=== PATIENT | male | born 1950 | race Caucasian/White ===

== ENCOUNTER 2017-01-19 15:03 | Inpatient (IN) | payer SELFPAY ==
[~2017-01-19] VITALS: Ht 172.7 cm; Wt 81.2 kg
[2017-01-19] VITALS (8 sets, daily range): BP systolic 158–190; BP diastolic 75–101
[~2017-01-19 15:03] MED LIST: Naloxone 1mg/ml 2ml ONE
[2017-01-19] MEDS ORDERED: Naloxone 1mg/ml 2ml IVP PRN (15:15)
[2017-01-19 15:33] LABS: MEAN CORPUSCULAR HEMOGLOBIN 27.5 PG (27.0-31.0); MEAN CORPUSCULAR HGB CONC 31.6 G/DL (32.0-36.0); MEAN CORPUSCULAR VOLUME 87 FL (80-99); MEAN PLATELET VOLUME 6.1 FL (6.5-10.1); PLATELET COUNT 334 K/UL (150-450); RED CELL DISTRIBUTION WIDTH 14.9 % (11.6-14.8); WHITE BLOOD COUNT 18.1 K/UL (4.8-10.8)
[2017-01-19 15:37] LABS: PROTHROMBIN TIME 10.6 SEC (9.30-11.50)
[2017-01-19 15:41] LABS: TROPONIN I < 0.30 ng/mL (<=0.30)
[2017-01-19 15:42] LABS: ACETAMINOPHEN < 10 ug/mL (10-30); ALANINE AMINOTRANSFERASE 7 U/L (3-41); ALBUMIN/GLOBULIN RATIO 1.3 (1.0-2.7); ALCOHOL < 10 mg/dL; ANION GAP 13 (5-15); ASPARTATE AMINO TRANSFERASE 13 U/L (5-40); CALCIUM 9.1 mg/dL (8.6-10.2); CARBON DIOXIDE 24 mEQ/L (20-30); CHLORIDE 96 mEQ/L (98-107); CREATININE 1.2 mg/dL (0.7-1.2); GLOMERULAR FILTRATION RATE > 60 mL/min (>60); HEMOLYSIS 0; POTASSIUM 4.3 mEQ/L (3.4-4.9); SODIUM 133 mEQ/L (135-145); TOTAL PROTEIN 7.8 g/dL (6.6-8.7)
[2017-01-19 15:49] LABS: APPEARANCE,URINE SLIGHTLY CLOUDY; KETONES,URINE NEGATIVE (NEGATIVE); LEUKOCYTE ESTERASE ,URINE 2+ (NEGATIVE); NITRITE,URINE NEGATIVE (NEGATIVE); PH,URINE 5 (4.5-8.0); PROTEIN,URINE NEGATIVE (NEGATIVE); UROBILINOGEN,URINE NORMAL MG/DL (0.0-1.0)
[2017-01-19 15:52] LABS: CKMB < 1.5 ng/mL (< 6.7)
[2017-01-19 15:56] LABS: ABG PCO2 45.5 mmHg (35.0-45.0)
[2017-01-19 15:57] LABS: ABG ALLEN TEST POSITIVE; ABG BASE EXCESS -2.6
[2017-01-19 15:59] LABS: BAND NEUTROPHILS % (MANUAL) 10 % (0-8); BASOPHILS % (MANUAL) 0 % (0-2); EOSINOPHILS % (MANUAL) 1 % (0-3); LYMPHOCYTES % (MANUAL) 9 % (20-45); NEUTROPHILS % (MANUAL) 74 % (45-75); PLATELET ESTIMATE ADEQUATE; TOTAL CELLS COUNTED 100
[2017-01-19 16:00] LABS: ANISOCYTOSIS 1+; PLATELET MORPHOLOGY NORMAL
[2017-01-19] MEDS ORDERED: cloNIDine 0.2mg Tab ORAL ONE (16:00)
[2017-01-19 16:04] LABS: BACTERIA,URINE MODERATE /HPF; SQUAMOUS EPITHELIAL CELL,UR FEW /LPF (NONE/OCC)
--- NOTE | 2017-01-19 16:16 | Diagnostic Imaging Report ---
Indication: SOB Technique: One view of the chest Comparison: none Findings: There are bilateral shoulder prostheses. There is bilateral diffuse interstitial edema. The pleural spaces are clear. The heart is borderline enlarged Impression: Borderline cardiomegaly Bilateral diffuse interstitial edema Other findings as noted
[2017-01-19] MEDS ORDERED: D5NS 1,000 ML IV SCH (16:30)
[2017-01-19] MEDS ORDERED: Milk of Magnesia 30ml Ud ORAL PRN (16:30)
[2017-01-19] MEDS ORDERED: Albuterol/Ipratropium 3ml neb HHN PRN (16:30)
[2017-01-19] MEDS ORDERED: Esomeprazole sodium 40mg vial IVP ONE (16:30)
[2017-01-19] MEDS ORDERED: Miralax 17gm pkt ORAL PRN (16:30)
[2017-01-19] MEDS ORDERED: Mylanta II UD 30ml ORAL PRN (16:30)
--- NOTE | 2017-01-19 17:06 | Emergency Room Report ---
History of Present Illness General Chief Complaint: Altered Level of Consciousness Source: Friend, Medical Record, EMS, Caregiver, PMD Present Illness HPI This patient is brought in by EMS. He has a history of narcotic abuse and addiction. He says a history of alcoholism from several years ago. He has a long history of benzodiazepine use. He has had multiple orthopedic surgeries and has become addicted to prescription narcotic pain medications. He is undergoing a 5 day that detox. He has a medical sales specialist, painter decorator and nurse that is handling the home detox. He began detox 3 days ago. Over the past 2 days he has had severe withdrawal symptoms. He is down to oxycodone every 6 hours and has been taking large doses of Valium, gabapentin and other medications to help with the withdrawal symptoms. He had very large doses of Valium over the past day. He is brought in by EMS because of altered mental status. Was concern by his caregiver that he was not responding appropriately. He was slumped over and vomiting. EMS reported that on arrival his oxygen saturations were in the 80s on room air. He did have improvement in his oxygenation with a nonrebreather mask. Also there was concern that the emesis was dark in color that looked like coffee grounds. Patient does have a history of multiple orthopedic surgeries. He has a history of anemia, GERD, tobacco use. The patient is altered and unable to give a significant history. Allergies: Coded Allergies: No Known Allergies (Unverified , 01/19/17) Patient History Past Medical History: see triage record, HTN, GERD, psych hx - Depression, Anxiety, other - anemia, chronic pain, narcotic dependence, tobacco dependence Past Surgical History: other - Bilateral shoulder replacements, Knee replacement Social History: Reports: smoking, alcohol use, Denies: drug use Reviewed Nursing Documentation: PMH: Agreed, PSxH: Agreed Review of Systems All Other Systems: limited Physical Exam Vital Signs Date Time Temp Pulse Resp B/P (MAP) Pulse Ox O2 Delivery O2 Flow Rate FiO2 01/19/17 14:58 101.7 115 24 191/96 80 Room Air Sp02 EP Interpretation: reviewed, abnormal General Appearance: no apparent distress, GCS 15, non-toxic, other - sleepy, but arousable. Head: normocephalic, atraumatic Eyes: bilateral eye normal inspection, bilateral eye PERRL ENT: hearing grossly normal, normal pharynx, no angioedema, normal voice Neck: full range of motion, supple/symm/no masses Respiratory: chest non-tender, no respiratory distress, no retraction, no accessory muscle use, rhonchi, speaking full sentences Cardiovascular #1: no edema, tachycardia Gastrointestinal: normal bowel sounds, non tender, soft, non-distended, no guarding, no rebound, other - umbilical hernia Rectal: deferred Musculoskeletal: back normal, normal range of motion, non-tender Neurologic: responsive, motor strength/tone normal, sensory intact, speech normal, other - Nonfocal Psychiatric: no suicidal/homicidal ideation Skin: normal color, no rash, warm/dry, well hydrated Medical Decision Making Diagnostic Impression: Primary Impression: Benzodiazepine overdose Additional Impressions: Opioid withdrawal Fever Aspiration pneumonia GI bleed ER Course This patient is complicated. He presents with what appears to be a benzodiazepine overdose. The patient received very large doses of Valium over the past 48 hours. He also is sleepy and lethargic. Although, he does arouse to answer simple questions. His neurologic exam is nonfocal overall. He also is in the to aid with drawl which complicates his vital signs. He is tachycardic and hypertensive. He was unable to tolerate oral clonidine with emesis. He was given Compazine, IV hydralazine, clonidine transdermal patch, IV fluids. He had an episode of obvious coffee-ground emesis here in the emergency department. He has a history of GERD. He was given Nexium IV and placed on a Nexium drip. This patient is critically ill. He was admitted to the ICU. This patient is critically ill. This patient required complex medical decision- making, aggressive intervention, extensive laboratory workup and monitoring. Critical care time: 40 minutes. Laboratory Tests Test 01/19/17 15:15 01/19/17 15:30 01/19/17 15:50 White Blood Count 18.1 K/UL (4.8-10.8) H Red Blood Count 4.10 M/UL (4.70-6.10) L Hemoglobin 11.3 G/DL (14.2-18.0) L Hematocrit 35.6 % (42.0-52.0) L Mean Corpuscular Volume 87 FL (80-99) Mean Corpuscular Hemoglobin 27.5 PG (27.0-31.0) Mean Corpuscular Hemoglobin Concent 31.6 G/DL (32.0-36.0) L Red Cell Distribution Width 14.9 % (11.6-14.8) H Platelet Count 334 K/UL (150-450) Mean Platelet Volume 6.1 FL (6.5-10.1) L Neutrophils (%) (Auto) % (45.0-75.0) Lymphocytes (%) (Auto) % (20.0-45.0) Monocytes (%) (Auto) % (1.0-10.0) Eosinophils (%) (Auto) % (0.0-3.0) Basophils (%) (Auto) % (0.0-2.0) Differential Total Cells Counted 100 Neutrophils % (Manual) 74 % (45-75) Lymphocytes % (Manual) 9 % (20-45) L Monocytes % (Manual) 6 % (1-10) Eosinophils % (Manual) 1 % (0-3) Basophils % (Manual) 0 % (0-2) Band Neutrophils 10 % (0-8) H Platelet Estimate Adequate Platelet Morphology Normal Anisocytosis 1+ Prothrombin Time 10.6 SEC (9.30-11.50) Prothrombin Time INR 1.0 (0.9-1.1) PTT 26 SEC (23-33) Sodium Level 133 mEQ/L (135-145) L Potassium Level 4.3 mEQ/L (3.4-4.9) Chloride Level 96 mEQ/L (98-107) L Carbon Dioxide Level 24 mEQ/L (20-30) Anion Gap 13 (5-15) Blood Urea Nitrogen 17 mg/dL (7-23) Creatinine 1.2 mg/dL (0.7-1.2) Estimate Glomerular Filtration Rate > 60 mL/min (>60) Glucose Level 179 mg/dL (74-106) H Calcium Level 9.1 mg/dL (8.6-10.2) Total Bilirubin 0.2 mg/dL (0.0-1.2) Aspartate Amino Transferase (AST) 13 U/L (5-40) Alanine Aminotransferase (ALT) 7 U/L (3-41) Alkaline Phosphatase 105 U/L (40-129) Total Creatine Kinase 49 U/L (38-174) Creatine Kinase MB < 1.5 ng/mL (< 6.7) Creatine Kinase MB Relative Index 3.0 Troponin I < 0.30 ng/mL (<=0.30) Pro-B-Type Natriuretic Peptide 382 pg/mL (0-125) H Total Protein 7.8 g/dL (6.6-8.7) Albumin 4.5 g/dL (3.5-5.2) Globulin 3.3 g/dL Albumin/Globulin Ratio 1.3 (1.0-2.7) Salicylates Level < 1 mg/dL (10-30) L Acetaminophen Level < 10 ug/mL (10-30) L Serum Alcohol < 10 mg/dL Urine Color Pale yellow Urine Appearance Slightly cloudy Urine pH 5 (4.5-8.0) Urine Specific [place] 1.015 (1.005-1.035) Urine Protein Negative (NEGATIVE) Urine Glucose (UA) Negative (NEGATIVE) Urine Ketones Negative (NEGATIVE) Urine Occult Blood 1+ (NEGATIVE) H Urine Nitrite Negative (NEGATIVE) Urine Bilirubin Negative (NEGATIVE) Urine Urobilinogen Normal MG/DL (0.0-1.0) Urine Leukocyte Esterase 2+ (NEGATIVE) H Urine RBC 2-4 /HPF (0 - 0) H Urine WBC 5-10 /HPF (0 - 0) H Urine Squamous Epithelial Cells Few /LPF (NONE/OCC) Urine Bacteria Moderate /HPF (NONE) H Urine Opiates Screen Negative (NEGATIVE) Urine Barbiturates Screen Negative (NEGATIVE) Phencyclidine (PCP) Screen Negative (NEGATIVE) Urine Amphetamines Screen Negative (NEGATIVE) Urine Benzodiazepines Screen Positive (NEGATIVE) H Urine Cocaine Screen Negative (NEGATIVE) Urine Marijuana (THC) Screen Negative (NEGATIVE) Arterial Blood pH 7.320 (7.350-7.450) Arterial Blood Partial Pressure CO2 45.5 mmHg (35.0-45.0) H Arterial Blood Partial Pressure O2 95.5 mmHg (75.0-100.0) Arterial Blood HCO3 23.3 mmol/L (22.0-26.0) Arterial Blood Oxygen Saturation 95.7 % (92.0-98.0) Arterial Blood Base Excess -2.6 Brian Test Positive EKG Diagnostic Results Rate: tachycardiac Rhythm: other ST Segments: no acute changes Other Impression S.tachycardia Rhythm Strip Diag. Results EP Interpretation: yes Rate: 130's Rhythm: no PVC's, no ectopy, other Other Impression S.tachycardia Chest X-Ray Diagnostic Results Chest X-Ray Diagnostic Results : Chest X-Ray Ordered: Yes # of Views/Limited/Complete: 1 View Indication: Other - Interstitial edema. Right lower lobe opacity. EP Interpretation: No Interpretation: no pneumothorax, other Impression: Other Electronically Signed by: Gisella Last Vital Signs Date Time Temp Pulse Resp B/P (MAP) Pulse Ox O2 Delivery O2 Flow Rate FiO2 01/19/17 16:41 199/88 01/19/17 14:58 101.7 115 24 80 Room Air Disposition: ADMITTED INPATIENT Condition: Critical Referrals: NON PHYSICIAN (PCP) MAYRA VELA D.O. Jan 19, 2017 17:06
[2017-01-19] MEDS ORDERED: VALACYCLOVIR500 MG ORAL (17:12)
[2017-01-19] MEDS ORDERED: VIAGRA100 MG PO (17:12)
[2017-01-19] MEDS ORDERED: Acetaminophen 650 MG SUPP RECTAL ONE (17:15)
[2017-01-19] MEDS ORDERED: VITAMIN D400 INTLU ORAL (17:24)
[2017-01-19] MEDS ORDERED: CARAFATE1 GM/10 M1 ORAL (17:24)
[2017-01-19] MEDS ORDERED: FISH OIL CAP1000 MG ORAL (17:24)
[2017-01-19] MEDS ORDERED: COLACE100 MG ORAL (17:24)
[2017-01-19] MEDS ORDERED: TUMS200 M1 PO (17:24)
[2017-01-19] MEDS ORDERED: MIRALAX17 G2 ORAL (17:24)
[2017-01-19] MEDS ORDERED: VITAMIN C500 M1 ORAL (17:24)
[2017-01-19] MEDS ORDERED: CLONIDINE HCL0.1 MG PO (17:24)
[2017-01-19] MEDS ORDERED: TUMS300 MG PO (17:24)
[2017-01-19] MEDS ORDERED: METAMUCIL0.52 G1 PO (17:24)
[2017-01-19] MEDS ORDERED: NARCAN 1 MG/ML IM (17:35)
[2017-01-19] MEDS ORDERED: FLECTOR1 EACH TP (17:35)
[2017-01-19] MEDS ORDERED: NEURONTIN300 MG ORAL (17:42)
[2017-01-19] MEDS ORDERED: OXYCONTIN10 MG ORAL (17:42)
[2017-01-19] MEDS ORDERED: QUETIAPINE FUMA25 MG ORAL (17:42)
[2017-01-19] MEDS ORDERED: ROXICODONE5 MG ORAL (17:42)
[2017-01-19] MEDS ORDERED: QUETIAPINE FUM100 MG ORAL (17:42)
[2017-01-19] MEDS ORDERED: ABILIFY10 MG ORAL (17:42)
[2017-01-19] MEDS ORDERED: PROPRANOLOL HCL80 M2 PO (17:42)
[2017-01-19] MEDS ORDERED: NS IVP SCH (18:00)
[2017-01-19] MEDS ORDERED: ESOMEPRAZOLE SODIUM IVP SCH (18:00)
[2017-01-19] MEDS ORDERED: DEXILANT60 MG ORAL (18:15)
[2017-01-19] MEDS ORDERED: Metoprolol 5mg/5ml Inj IVPB PRN (18:15)
[2017-01-19] MEDS ORDERED: ECOTRIN81 MG PO (18:15)
[2017-01-19] MEDS ORDERED: SULINDAC150 MG PO (18:15)
[2017-01-19] MEDS ORDERED: AMITRIPTYLINE100 MG ORAL (18:15)
[2017-01-19] MEDS ORDERED: SINGULAIR10 MG ORAL (18:15)
[2017-01-19] MEDS ORDERED: ZANTAC150 MG ORAL (18:15)
[2017-01-19] MEDS ORDERED: ZOVIRAX5 GM TOP (18:18)
[2017-01-19] MEDS ORDERED: LOSARTAN POTASS50 MG ORAL (18:18)
[2017-01-19] MEDS ORDERED: BEVESPI AEROS10.7 GM IH (18:18)
[2017-01-19] MEDS ORDERED: CIALIS5 MG PO (18:18)
[2017-01-19] MEDS ORDERED: CIALIS20 MG ORAL (18:18)
[2017-01-19] MEDS ORDERED: FOLIC ACID1 M1 PO (18:18)
[2017-01-19] MEDS ORDERED: Metoprolol Tartrate 5 MG in NS 55 ML IVPB PRN (19:15)
--- NOTE | 2017-01-19 19:39 | Infectious Diseases Prog Note ---
Assessment/Plan Assessment/Plan Full consult dictated: A) 1) possible aspiration pna, ? cap pna, sepsis, leukocytosis, fevers, ? uti 2) ? gib 3) detox, opiate dependency 4) pmh noted 5) allergies - negative P) 1) vancomycin, zosyn, levofloxacin 2) check sc, labs, cultures, chest x-ray 3) orders entered and noted 4) d/w Dr. Arteaga 5) thank you Subjective Allergies: Coded Allergies: No Known Allergies (Unverified , 01/19/17) Objective Vital Signs Last 24 Hour Vital Signs Date Time Temp Pulse Resp B/P (MAP) Pulse Ox O2 Delivery O2 Flow Rate FiO2 01/19/17 17:58 101.8 114 20 186/83 97 Nasal Cannula 2.0 01/19/17 17:38 178/86 01/19/17 17:08 101.9 116 18 190/87 97 Nasal Cannula 2.0 01/19/17 16:41 199/88 01/19/17 16:11 193/106 01/19/17 16:10 101.2 141 24 182/101 94 Nasal Cannula 4.0 01/19/17 14:58 101.7 115 24 191/96 80 Room Air Height (Feet): 5 Height (Inches): 8.00 Weight (Pounds): 170 Laboratory Tests Test 01/19/17 15:15 01/19/17 15:30 01/19/17 15:50 White Blood Count 18.1 K/UL (4.8-10.8) H Red Blood Count 4.10 M/UL (4.70-6.10) L Hemoglobin 11.3 G/DL (14.2-18.0) L Hematocrit 35.6 % (42.0-52.0) L Mean Corpuscular Volume 87 FL (80-99) Mean Corpuscular Hemoglobin 27.5 PG (27.0-31.0) Mean Corpuscular Hemoglobin Concent 31.6 G/DL (32.0-36.0) L Red Cell Distribution Width 14.9 % (11.6-14.8) H Platelet Count 334 K/UL (150-450) Mean Platelet Volume 6.1 FL (6.5-10.1) L Neutrophils (%) (Auto) % (45.0-75.0) Lymphocytes (%) (Auto) % (20.0-45.0) Monocytes (%) (Auto) % (1.0-10.0) Eosinophils (%) (Auto) % (0.0-3.0) Basophils (%) (Auto) % (0.0-2.0) Differential Total Cells Counted 100 Neutrophils % (Manual) 74 % (45-75) Lymphocytes % (Manual) 9 % (20-45) L Monocytes % (Manual) 6 % (1-10) Eosinophils % (Manual) 1 % (0-3) Basophils % (Manual) 0 % (0-2) Band Neutrophils 10 % (0-8) H Platelet Estimate Adequate Platelet Morphology Normal Anisocytosis 1+ Prothrombin Time 10.6 SEC (9.30-11.50) Prothromb Time International Ratio 1.0 (0.9-1.1) Activated Partial Thromboplast Time 26 SEC (23-33) Sodium Level 133 mEQ/L (135-145) L Potassium Level 4.3 mEQ/L (3.4-4.9) Chloride Level 96 mEQ/L (98-107) L Carbon Dioxide Level 24 mEQ/L (20-30) Anion Gap 13 (5-15) Blood Urea Nitrogen 17 mg/dL (7-23) Creatinine 1.2 mg/dL (0.7-1.2) Estimat Glomerular Filtration Rate > 60 mL/min (>60) Glucose Level 179 mg/dL (74-106) H Calcium Level 9.1 mg/dL (8.6-10.2) Total Bilirubin 0.2 mg/dL (0.0-1.2) Aspartate Amino Transf (AST/SGOT) 13 U/L (5-40) Alanine Aminotransferase (ALT/SGPT) 7 U/L (3-41) Alkaline Phosphatase 105 U/L (40-129) Total Creatine Kinase 49 U/L (38-174) Creatine Kinase MB < 1.5 ng/mL (< 6.7) Creatine Kinase MB Relative Index 3.0 Troponin I < 0.30 ng/mL (<=0.30) Pro-B-Type Natriuretic Peptide 382 pg/mL (0-125) H Total Protein 7.8 g/dL (6.6-8.7) Albumin 4.5 g/dL (3.5-5.2) Globulin 3.3 g/dL Albumin/Globulin Ratio 1.3 (1.0-2.7) Salicylates Level < 1 mg/dL (10-30) L Acetaminophen Level < 10 ug/mL (10-30) L Serum Alcohol < 10 mg/dL Urine Color Pale yellow Urine Appearance Slightly cloudy Urine pH 5 (4.5-8.0) Urine Specific [place] 1.015 (1.005-1.035) Urine Protein Negative (NEGATIVE) Urine Glucose (UA) Negative (NEGATIVE) Urine Ketones Negative (NEGATIVE) Urine Occult Blood 1+ (NEGATIVE) H Urine Nitrite Negative (NEGATIVE) Urine Bilirubin Negative (NEGATIVE) Urine Urobilinogen Normal MG/DL (0.0-1.0) Urine Leukocyte Esterase 2+ (NEGATIVE) H Urine RBC 2-4 /HPF (0 - 0) H Urine WBC 5-10 /HPF (0 - 0) H Urine Squamous Epithelial Cells Few /LPF (NONE/OCC) Urine Bacteria Moderate /HPF (NONE) H Urine Opiates Screen Negative (NEGATIVE) Urine Barbiturates Screen Negative (NEGATIVE) Phencyclidine (PCP) Screen Negative (NEGATIVE) Urine Amphetamines Screen Negative (NEGATIVE) Urine Benzodiazepines Screen Positive (NEGATIVE) H Urine Cocaine Screen Negative (NEGATIVE) Urine Marijuana (THC) Screen Negative (NEGATIVE) Arterial Blood pH 7.320 (7.350-7.450) Arterial Blood Partial Pressure CO2 45.5 mmHg (35.0-45.0) H Arterial Blood Partial Pressure O2 95.5 mmHg (75.0-100.0) Arterial Blood HCO3 23.3 mmol/L (22.0-26.0) Arterial Blood Oxygen Saturation 95.7 % (92.0-98.0) Arterial Blood Base Excess -2.6 Brian Test Positive Current Medications Medications (Trade) Dose Ordered Sig/Juan Route PRN Reason Start Time Stop Time Status Last Admin Dose Admin Acetaminophen (Tylenol) 650 mg Q4H PRN ORAL mild pain, fever 01/19/17 19:00 02/18/17 18:59 Acetaminophen (Tylenol) 650 mg Q4H PRN RECTAL Mild Pain (1-3), fever 01/19/17 18:15 02/18/17 18:14 Al Hydroxide/Mg Hydroxide (Mylanta II) 30 ml Q6H PRN ORAL GI UPSET 01/19/17 16:30 02/18/17 16:29 Albuterol/ Ipratropium (DuoNeb 0.5-3(2.5)mg/3ml) 3 ml Q4H PRN HHN Shortness of Breath 01/19/17 16:30 01/24/17 16:29 Artificial Tears (Akwa-Tears) 1 drop THREE TIMES A DAY BOTH EYES 01/19/17 21:00 02/18/17 20:59 Bisacodyl (Dulcolax) 10 mg DAILYPRN PRN RECTAL UNRELIEVED CONSTIPATION 01/19/17 16:30 02/18/17 16:29 Clonidine HCl (Catapres) 0.1 mg TIDPRN PRN ORAL SBP>160 01/19/17 18:15 02/18/17 18:14 Dextrose (Dextrose 50%) STAT PRN IV Hypoglycemia 01/19/17 16:30 02/18/17 16:29 Dextrose/Sodium Chloride 1,000 ml @ 75 mls/hr [id number] IV 01/20/17 19:20 02/19/17 19:19 Diphenhydramine HCl (Benadryl) 25 mg Q6H PRN ORAL Itching/Pruritis 01/19/17 16:30 02/18/17 16:29 Docusate Sodium (Colace) 100 mg EVERY 12 HOURS ORAL 01/19/17 21:00 02/18/17 20:59 Esomeprazole Sodium 80 mg/ Sodium Chloride 275 ml @ 27.5 mls/hr Q10H IVP 01/19/17 19:00 02/18/17 18:59 Heparin Sodium (Porcine) (Heparin 5000 units/ml) 5,000 units EVERY 8 HOURS SUBQ 01/19/17 22:00 02/18/17 21:59 Future Hold Magnesium Hydroxide (Mom) 30 ml HSPRN PRN ORAL Constipation 01/19/17 16:30 02/18/17 16:29 Metoprolol Tartrate 5 mg/ Sodium Chloride 60 ml @ 120 mls/hr Q6H PRN IVPB SBP>160 IF UNABLE TO TAKE ORAL 01/19/17 19:15 02/18/17 19:14 Naloxone HCl (Narcan) 2 mg Q2M PRN IVP to reverse resp depression 01/19/17 15:15 02/18/17 15:14 01/19/17 15:34 Ondansetron HCl (Zofran) 4 mg Q6H PRN IVP Nausea & Vomiting 01/19/17 16:30 02/18/17 16:29 Piperacillin Sod/ Tazobactam Sod 3.375 gm/Dextrose 110 ml @ 27.5 mls/hr Q8HR IVPB 01/19/17 20:00 01/26/17 19:59 Polyethylene Glycol (Miralax) 17 gm DAILYPRN PRN ORAL Constipation 01/19/17 16:30 02/18/17 16:29 Prochlorperazine (Compazine) 10 mg Q6H PRN IVP UNRELIEVED N/V 01/19/17 16:30 02/18/17 16:29 CHUCK ASHER Jan 19, 2017 19:39
[2017-01-19] MEDS: ESOMEPRAZOLE SODIUM IVP SCH (20:10)
[2017-01-19] MEDS: NS IVP SCH (20:10)
[2017-01-19] MEDS: Piperacillin/Tazobactam 3.375 GM in D5W 110 ML IVPB SCH (20:47)
[2017-01-19] MEDS: Docusate 100mg cap ORAL SCH (21:00)
[2017-01-19] MEDS: Artificial Tears 1.4% Op Soln BOTH EYES SCH (21:16)
[2017-01-19] MEDS: Acetaminophen 650 MG SUPP RECTAL PRN (21:58)
[2017-01-19] MEDS ORDERED: Heparin 5000 units/ml inj SUBQ SCH (22:00)
[2017-01-19] MEDS: Vancomycin 1250mg/D5W 250ml IVPB SCH (23:03)
--- NOTE | 2017-01-19 23:18 | History and Physical ---
History of Present Illness General Date patient seen: Jan 19, 2017 Time patient seen: 16:50 Reason for Hospitalization: Altered Level of Consciousness Present Illness HPI 66y/o male with pmh of depression/anxiety, alcohol abuse (now in remission per reports), hepatitis C, tobacco abuse, chronic pain with opioid dependence, osteoarthritis w/ multiple orthopedic surgeries (R TKA 08/2016, R reverse total shoulder arthroplasty 09/2016), GERD, esophagitis who presents with AMS. Pt somnolent at time of my history. Per pt's cousin, pt has had multiple orthopedic surgeries and has become addicted to prescription narcotic pain medications. He is undergoing a 5 day detox. He has a medical recruiter, painter decorator and nurse that is handling the home detox. Over the past 2 days he has had severe withdrawal symptoms. He is down to oxycodone 5mg every 6 hours and has been taking large doses of Valium, gabapentin and other medications to help with the withdrawal symptoms. He had very large doses of Valium over the past day. There was concern by his caregiver that he was not responding appropriately. He was slumped over and vomiting. There was concern for aspiration. EMS reported that on arrival his oxygen saturations were in the 80s on room air. He did have improvement in his oxygenation with a nonrebreather mask. Also there was concern that the emesis was dark in color that looked like coffee grounds. Patient does have a history of multiple orthopedic surgeries. In ED, pt noted to have fevers to 101, tachycardic and hypertensive. Labs showed leukocytosis to 18K, hyponatremia. Pt given fluids, levaquin Allergies: Coded Allergies: No Known Allergies (Unverified , 01/19/17) Medication History Scheduled Acyclovir* (Zovirax*), 1 APPLIC TOP FIVE TIMES A DAY, (Reported) Amitriptyline HCl (Amitriptyline HCl), 100 MG ORAL BEDTIME, (Reported) Aripiprazole* (Abilify*), 5 MG ORAL DAILY, (Reported) Ascorbic Acid* (Vitamin C*), 500 MG ORAL DAILY, (Reported) Aspirin (Ecotrin), 81 MG PO DAILY, (Reported) Calcium Carbonate (Tums), 300 MG PO TID, (Reported) Dexlansoprazole (Dexilant), 60 MG ORAL DAILY, (Reported) Docusate Sodium* (Colace*), 250 MG ORAL DAILY, (Reported) Fish Oil (Fish Oil 1,000 mg Capsule), 1,000 MG ORAL DAILY, (Reported) Folic Acid (Folic Acid), 1 MG PO DAILY, (Reported) Gabapentin (Neurontin), 300 MG ORAL THREE TIMES A DAY, (Reported) Glycopyrrolate/Formoterol Fum (Bevespi Aerosphere Inhaler), 10.7 GM IH BID, ( Reported) Losartan Potassium* (Losartan Potassium*), 50 MG ORAL BID, (Reported) Montelukast Sodium* (Singulair*), 10 MG ORAL DAILY, (Reported) Propranolol HCl (Propranolol HCl), 80 MG PO BID, (Reported) Psyllium Husk (Metamucil), 0.52 GM PO DAILY, (Reported) Quetiapine Fumarate* (Seroquel*), 100 MG ORAL HS, (Reported) Quetiapine Fumarate* (Seroquel*), 25 MG ORAL HS, (Reported) Ranitidine Hcl* (Zantac*), 150 MG ORAL TWICE A DAY, (Reported) Sildenafil Citrate (Viagra), 100 MG PO PRN, (Reported) Sucralfate (Carafate), 1 GM ORAL FOUR TIMES A DAY, (Reported) Sulindac (Sulindac), 150 MG PO BID, (Reported) Tadalafil (Cialis), 20 MG ORAL NEEDED, (Reported) Tadalafil (Cialis), 5 MG PO DAILY, (Reported) Valacyclovir Hcl* (Valtrex*), 500 MG ORAL TWICE A DAY, (Reported) Vitamin D (Vitamin D3), 5,000 UNITS ORAL DAILY, (Reported) Scheduled PRN Clonidine Hcl (Clonidine Hcl), 0.1 MG PO TID PRN for For High Blood Pressure, ( Reported) Diclofenac Epolamine (Flector), 1 EACH TP DAILY PRN for For Pain, (Reported) Oxycodone HCl (Oxycodone HCl), 5 MG ORAL Q4H PRN for For Pain, (Reported) Oxycodone Hcl Er* (Oxycontin*), 10 MG ORAL EVERY 12 HOURS PRN for For Pain, ( Reported) Polyethylene Glycol 3350* (Miralax*), 17 GM ORAL DAILY PRN for Constipation, ( Reported) Miscellaneous Medications Calcium Carbonate (Tums), 500 MG PO, (Reported) Naloxone HCl (Naloxone HCl), 2 MG IM, (Reported) Patient History History Provided By: Patient, Family Member, Friend, Medical Record, Caregiver , PMD Healthcare decision maker Resuscitation status Full Code Advanced Directive on File Patient History Narrative right total knee arthroplasty approximately 08/2012 right reverse total shoulder arthroplasty 09/15/2012 right shoulder joint steroid injection in the past under anesthesia left total knee arthroplasty history of bilateral pneumonia with intubation several months ago hepatitis C positive anemia, degenerative joint disease insomnia depression esophagitis seen on EGD done ~2 months ago Past Medical/Surgical History Past Medical/Surgical History: (1) Opioid dependence (2) Osteoarthritis (3) Insomnia (4) Depression (5) Anxiety (6) Hepatitis C infection (7) Esophagitis (8) Tobacco abuse Family History Family History: Patient reports no known family medical history. Social History Social History: (1) Lives with family (2) Smoker Review of Systems ROS Narrative Unable to obtain given AMS Physical Exam Physical Exam Narrative General: somnolent, arousable briefly to voice Head: normocephalic, without obvious abnormality, atraumatic Eyes: conjunctivae/corneas clear. PERRL, EOM's intact Throat: lips, mucosa, and tongue normal. MMM Neck: supple, symmetrical, trachea midline, and no JVD Lungs: +rhonchi b/l Heart: regular rate and rhythm, S1, S2 normal, no murmur, click, rub or gallop Abdomen: soft, non-tender, non-distended, bowel sounds normal; no masses or organomegaly Extremities: extremities normal, atraumatic, no cyanosis or edema Pulses: 2+ and symmetric Skin: skin color, texture, turgor normal; no rashes or lesions Neurologic: grossly normal, no focal deficits Last 24 Hour Vital Signs Date Time Temp Pulse Resp B/P (MAP) Pulse Ox O2 Delivery O2 Flow Rate FiO2 01/19/17 20:51 Nasal Cannula 2.0 28 01/19/17 20:51 97 Nasal Cannula 2.0 28 01/19/17 20:50 103 20 Nasal Cannula 2.0 28 01/19/17 20:09 111 166/79 01/19/17 20:00 117 01/19/17 19:18 112 22 198/89 97 Nasal Cannula 2.0 01/19/17 17:58 101.8 114 20 186/83 97 Nasal Cannula 2.0 01/19/17 17:38 178/86 01/19/17 17:08 101.9 116 18 190/87 97 Nasal Cannula 2.0 01/19/17 16:41 199/88 01/19/17 16:11 193/106 01/19/17 16:10 101.2 141 24 182/101 94 Nasal Cannula 4.0 01/19/17 14:58 101.7 115 24 191/96 80 Room Air Intake and Output 01/19/17 01/20/17 19:00 07:00 Intake Total 1500 ml Output Total 1300 ml 1450 ml Balance 200 ml -1450 ml Intake IV Total 1500 ml Output Urine Total 1300 ml 1450 ml Laboratory Tests Test 01/19/17 15:15 01/19/17 15:30 01/19/17 15:50 White Blood Count 18.1 K/UL (4.8-10.8) H Red Blood Count 4.10 M/UL (4.70-6.10) L Hemoglobin 11.3 G/DL (14.2-18.0) L Hematocrit 35.6 % (42.0-52.0) L Mean Corpuscular Volume 87 FL (80-99) Mean Corpuscular Hemoglobin 27.5 PG (27.0-31.0) Mean Corpuscular Hemoglobin Concent 31.6 G/DL (32.0-36.0) L Red Cell Distribution Width 14.9 % (11.6-14.8) H Platelet Count 334 K/UL (150-450) Mean Platelet Volume 6.1 FL (6.5-10.1) L Neutrophils (%) (Auto) % (45.0-75.0) Lymphocytes (%) (Auto) % (20.0-45.0) Monocytes (%) (Auto) % (1.0-10.0) Eosinophils (%) (Auto) % (0.0-3.0) Basophils (%) (Auto) % (0.0-2.0) Differential Total Cells Counted 100 Neutrophils % (Manual) 74 % (45-75) Lymphocytes % (Manual) 9 % (20-45) L Monocytes % (Manual) 6 % (1-10) Eosinophils % (Manual) 1 % (0-3) Basophils % (Manual) 0 % (0-2) Band Neutrophils 10 % (0-8) H Platelet Estimate Adequate Platelet Morphology Normal Anisocytosis 1+ Prothrombin Time 10.6 SEC (9.30-11.50) Prothromb Time International Ratio 1.0 (0.9-1.1) Activated Partial Thromboplast Time 26 SEC (23-33) Sodium Level 133 mEQ/L (135-145) L Potassium Level 4.3 mEQ/L (3.4-4.9) Chloride Level 96 mEQ/L (98-107) L Carbon Dioxide Level 24 mEQ/L (20-30) Anion Gap 13 (5-15) Blood Urea Nitrogen 17 mg/dL (7-23) Creatinine 1.2 mg/dL (0.7-1.2) Estimat Glomerular Filtration Rate > 60 mL/min (>60) Glucose Level 179 mg/dL (74-106) H Calcium Level 9.1 mg/dL (8.6-10.2) Total Bilirubin 0.2 mg/dL (0.0-1.2) Aspartate Amino Transf (AST/SGOT) 13 U/L (5-40) Alanine Aminotransferase (ALT/SGPT) 7 U/L (3-41) Alkaline Phosphatase 105 U/L (40-129) Total Creatine Kinase 49 U/L (38-174) Creatine Kinase MB < 1.5 ng/mL (< 6.7) Creatine Kinase MB Relative Index 3.0 Troponin I < 0.30 ng/mL (<=0.30) Pro-B-Type Natriuretic Peptide 382 pg/mL (0-125) H Total Protein 7.8 g/dL (6.6-8.7) Albumin 4.5 g/dL (3.5-5.2) Globulin 3.3 g/dL Albumin/Globulin Ratio 1.3 (1.0-2.7) Salicylates Level < 1 mg/dL (10-30) L Acetaminophen Level < 10 ug/mL (10-30) L Serum Alcohol < 10 mg/dL Urine Color Pale yellow Urine Appearance Slightly cloudy Urine pH 5 (4.5-8.0) Urine Specific [place] 1.015 (1.005-1.035) Urine Protein Negative (NEGATIVE) Urine Glucose (UA) Negative (NEGATIVE) Urine Ketones Negative (NEGATIVE) Urine Occult Blood 1+ (NEGATIVE) H Urine Nitrite Negative (NEGATIVE) Urine Bilirubin Negative (NEGATIVE) Urine Urobilinogen Normal MG/DL (0.0-1.0) Urine Leukocyte Esterase 2+ (NEGATIVE) H Urine RBC 2-4 /HPF (0 - 0) H Urine WBC 5-10 /HPF (0 - 0) H Urine Squamous Epithelial Cells Few /LPF (NONE/OCC) Urine Bacteria Moderate /HPF (NONE) H Urine Opiates Screen Negative (NEGATIVE) Urine Barbiturates Screen Negative (NEGATIVE) Phencyclidine (PCP) Screen Negative (NEGATIVE) Urine Amphetamines Screen Negative (NEGATIVE) Urine Benzodiazepines Screen Positive (NEGATIVE) H Urine Cocaine Screen Negative (NEGATIVE) Urine Marijuana (THC) Screen Negative (NEGATIVE) Arterial Blood pH 7.320 (7.350-7.450) Arterial Blood Partial Pressure CO2 45.5 mmHg (35.0-45.0) H Arterial Blood Partial Pressure O2 95.5 mmHg (75.0-100.0) Arterial Blood HCO3 23.3 mmol/L (22.0-26.0) Arterial Blood Oxygen Saturation 95.7 % (92.0-98.0) Arterial Blood Base Excess -2.6 Brian Test Positive Height (Feet): 5 Height (Inches): 8.00 Weight (Pounds): 179 Medications Current Medications Medications (Trade) Dose Ordered Sig/Juan Route PRN Reason Start Time Stop Time Status Last Admin Dose Admin Acetaminophen (Tylenol) 650 mg Q4H PRN ORAL mild pain, fever 01/19/17 19:00 02/18/17 18:59 Acetaminophen (Tylenol) 650 mg Q4H PRN RECTAL Mild Pain (1-3), fever 01/19/17 18:15 02/18/17 18:14 01/19/17 21:58 Al Hydroxide/Mg Hydroxide (Mylanta II) 30 ml Q6H PRN ORAL GI UPSET 01/19/17 16:30 02/18/17 16:29 Albuterol/ Ipratropium (DuoNeb 0.5-3(2.5)mg/3ml) 3 ml Q4H PRN HHN Shortness of Breath 01/19/17 16:30 01/24/17 16:29 Artificial Tears (Akwa-Tears) 1 drop THREE TIMES A DAY BOTH EYES 01/19/17 21:00 02/18/17 20:59 01/19/17 21:16 Bisacodyl (Dulcolax) 10 mg DAILYPRN PRN RECTAL UNRELIEVED CONSTIPATION 01/19/17 16:30 02/18/17 16:29 Clonidine HCl (Catapres) 0.1 mg TIDPRN PRN ORAL SBP>160 01/19/17 18:15 02/18/17 18:14 Dextrose (Dextrose 50%) STAT PRN IV Hypoglycemia 01/19/17 16:30 02/18/17 16:29 Dextrose/Sodium Chloride 1,000 ml @ 75 mls/hr [id number] IV 01/20/17 19:20 02/19/17 19:19 Diphenhydramine HCl (Benadryl) 25 mg Q6H PRN ORAL Itching/Pruritis 01/19/17 16:30 02/18/17 16:29 Docusate Sodium (Colace) 100 mg EVERY 12 HOURS ORAL 01/19/17 21:00 02/18/17 20:59 Esomeprazole Sodium 80 mg/ Sodium Chloride 275 ml @ 27.5 mls/hr Q10H IVP 01/19/17 19:00 02/18/17 18:59 01/19/17 20:10 Heparin Sodium (Porcine) (Heparin 5000 units/ml) 5,000 units EVERY 8 HOURS SUBQ 01/19/17 22:00 02/18/17 21:59 Future Hold Levofloxacin 100 ml @ 100 mls/hr Q24H IVPB 01/20/17 16:00 01/27/17 15:59 Magnesium Hydroxide (Mom) 30 ml HSPRN PRN ORAL Constipation 01/19/17 16:30 02/18/17 16:29 Metoprolol Tartrate 5 mg/ Sodium Chloride 60 ml @ 120 mls/hr Q6H PRN IVPB SBP>160 IF UNABLE TO TAKE ORAL 01/19/17 19:15 02/18/17 19:14 01/19/17 20:09 Ondansetron HCl (Zofran) 4 mg Q6H PRN IVP Nausea & Vomiting 01/19/17 16:30 02/18/17 16:29 Piperacillin Sod/ Tazobactam Sod 3.375 gm/Dextrose 110 ml @ 27.5 mls/hr Q8HR IVPB 01/19/17 20:00 01/26/17 19:59 01/19/17 20:47 Polyethylene Glycol (Miralax) 17 gm DAILYPRN PRN ORAL Constipation 01/19/17 16:30 02/18/17 16:29 Prochlorperazine (Compazine) 10 mg Q6H PRN IVP UNRELIEVED N/V 01/19/17 16:30 02/18/17 16:29 Vancomycin HCl (Vanco rx to dose) 1 ea DAILYPRN PRN MISC Per rx protocol 01/19/17 19:30 02/18/17 19:29 Vancomycin HCl/ Dextrose 250 ml @ 166.667 mls/hr Q12H IVPB 01/19/17 23:00 01/24/17 22:59 Assessment/Plan Problem List: (1) Acute toxic encephalopathy (2) Benzodiazepine overdose ICD Codes: T42.4X1A - Poisoning by benzodiazepines, accidental (unintentional) , initial encounter SNOMED: 586614163 (3) Sepsis ICD Codes: A41.9 - Sepsis, unspecified organism SNOMED: 24270887 (4) Acute respiratory failure with hypoxia ICD Codes: J96.01 - Acute respiratory failure with hypoxia SNOMED: 38571715, 545854440 (5) Aspiration pneumonia ICD Codes: J69.0 - Pneumonitis due to inhalation of food and vomit SNOMED: 683331726 (6) Coffee ground emesis Assessment & Plan: Pssible upper GI bleed 2/2 PUD given h/o NSAID and ASA use ICD Codes: K92.0 - Hematemesis SNOMED: 35567100, 472070929 (7) Opioid dependence ICD Codes: F11.20 - Opioid dependence, uncomplicated SNOMED: 15350387 (8) Tobacco abuse ICD Codes: Z72.0 - Tobacco use SNOMED: 71154337, 778566490 (9) H/O esophagitis ICD Codes: Z87.19 - Personal history of other diseases of the digestive system SNOMED: 283671571779259 (10) GERD (gastroesophageal reflux disease) ICD Codes: K21.9 - Gastro-esophageal reflux disease without esophagitis SNOMED: 138015828 Status: stable Assessment/Plan Admit to ICU Monitor mental status, vitals, respiratory status closely O2 PRN to maintain sats>92% NPO given AMS IVFs Swallow eval ID consulted Empiric Abx:vanco and zosyn GI consulted PPI gtt Carafate Hold all IV narcotics and benzo's per PCP Supportive care Bowel regimen At the time of my involvement, the patient's condition was critical with high potential for and/or physiologic deterioration secondary to acute encephalopathy, hypoxia, aspiration PNA as delineated in the note above. On the above date of service, I spent a total of 75min on this encounter and 45min minutes in the ICU evaluating, managing, and providing critical care services to this patient, including time spent documenting these activities, counseling patient/family, and coordinating care. Critical care services performed include: Telemetry Review Hemodynamic measurement interpretation Laboratory data review and interpretation Discussion of care plans with patient, family, and/or surrogate decision makers Discussion of patient's care with primary medical team, surgical team, and/or consulting service Decision to obtain further radiologic evaluation, after consideration of risk/ benefit ratio Decision to perform invasive procedure, after consideration of risk/benefit ratio Review of most recent microbiology results with assessment and modification of antimicrobial coverage Discussion of patient's code status and further advancement towards the ultimate goals of care Plan outlined above discussed with patient/family, FASHION MERCHANDISER, ICU team, and involved physicians/consultants. D/w PCP Dr. Hilton, ED physician, ID, GI regarding mgmt and dispo Time of note may not reflect time of encounter. Jenni Lang M.D. Jan 19, 2017 23:18
[2017-01-20] VITALS (15 sets, daily range): BP systolic 123–166; BP diastolic 57–95
[2017-01-20] MEDS: Acetaminophen 650 MG SUPP RECTAL PRN (02:09)
[2017-01-20] MEDS: NS IVP SCH (03:00)
[2017-01-20] MEDS: ESOMEPRAZOLE SODIUM IVP SCH (03:00)
[2017-01-20 05:22] LABS: BASOPHILS % (AUTO) 0.6 % (0.0-2.0); LYMPHOCYTES % (AUTO) 9.9 % (20.0-45.0); MEAN CORPUSCULAR HEMOGLOBIN 29.1 PG (27.0-31.0); MEAN CORPUSCULAR HGB CONC 33.8 G/DL (32.0-36.0); MEAN CORPUSCULAR VOLUME 86 FL (80-99); MEAN PLATELET VOLUME 6.1 FL (6.5-10.1); MONOCYTES % (AUTO) 9.1 % (1.0-10.0); NEUTROPHILS % (AUTO) 80.4 % (45.0-75.0); PLATELET COUNT 256 K/UL (150-450); RED BLOOD COUNT 3.18 M/UL (4.70-6.10); RED CELL DISTRIBUTION WIDTH 14.8 % (11.6-14.8); WHITE BLOOD COUNT 17.7 K/UL (4.8-10.8)
[2017-01-20 05:41] LABS: ALANINE AMINOTRANSFERASE 6 U/L (3-41); ANION GAP 12 (5-15); ASPARTATE AMINO TRANSFERASE 14 U/L (5-40); BILIRUBIN,DIRECT 0.1 mg/dL (0.1-0.3); CALCIUM 8.5 mg/dL (8.6-10.2); CARBON DIOXIDE 24 mEQ/L (20-30); CHLORIDE 101 mEQ/L (98-107); CREATININE 1.1 mg/dL (0.7-1.2); GLOMERULAR FILTRATION RATE > 60 mL/min (>60); HEMOLYSIS 6; SODIUM 137 mEQ/L (135-145); TOTAL PROTEIN 6.4 g/dL (6.6-8.7)
[2017-01-20] MEDS ORDERED: Haloperidol 1mg tab ORAL PRN (05:45)
[2017-01-20] MEDS: Piperacillin/Tazobactam 3.375 GM in D5W 110 ML IVPB SCH ×2 (06:26→13:51)
--- NOTE | 2017-01-20 06:30 | Consultation ---
DATE OF CONSULTATION: 01/19/2017 INFECTIOUS DISEASE CONSULTATION CONSULTING PHYSICIAN: Mirian Rowland M.D. ATTENDING PHYSICIAN: Duy Cody M.D. REFERRING PHYSICIAN: Jenni Lang M.D. Reason For Consultation: Pneumonia, sepsis, leukocytosis, fevers, and aspiration pneumonia. Chief Complaint: The patient's chief complaint coming to the hospital is opioid withdrawal, benzodiazepine overdose. History Of Present Illness: This is a 66-year-old male, who was seen in the emergency room at [facility]. The patient overall is a poor historian. The patient has a history of narcotic abuse and addiction and history of history of alcoholism. The patient also has a history of benzodiazepine use. Also, history of multiple orthopedic surgeries and addiction to narcotics. The patient is undergoing five-day detox. The patient underwent detox few days ago and has had severe withdrawal symptoms in the past two days. He has had oxycodone and Valium. The patient presents with altered mental status and not responding very well prior to admission. He slumped over and vomiting and desaturation oxygen. There is a concern for emesis with coffee-ground material. The patient is febrile, temperatures of 101.9 degrees and has a significant leukocytosis of 18,000 and has SIRS criteria with elevated heart rate and respiratory rate. Infectious Diseases consultation was requested for antibiotic management. The patient will go to the ICU and I am going to start him on vancomycin and Zosyn to cover aspiration pneumonia and Gram-negative and MRSA. Cultures have been ordered. MAR was noted. Orders were noted. Notes were reviewed. Case was discussed with Dr. Arteaga. Past Medical History: The patient's past medical history includes the following. He has history of narcotic pain medication addiction, history of alcoholism, and history of nicotine dependency. No history of IV drug abuse. He also has a past medical history of hypertension, GERD, psychiatric disease, depression, anxiety, anemia, and chronic pain. Past Surgical History: History of bilateral shoulder replacements and knee replacement. Medications: Upon reviewing the MAR, he is on the following medications. In the emergency room, he got heparin, Zosyn, metoprolol, acetaminophen, proton pump inhibitor, and clonidine. I think he got Nexium, was a proton pump inhibitor. Apresoline and clonidine was given, albuterol treatment, Zofran, Compazine, bisacodyl, diphenhydramine, famotidine, Levaquin was given also. Naloxone was given. ALLERGIES: Negative. Social History: Positive for alcohol use, smoking use, and also addiction to narcotic pain medications. FAMILY HISTORY: Noncontributory. Review Of Systems: General: The patient is a poor historian. He is lethargic, weak, altered mental status, tachycardic. Head And Neck: No obvious head pain or neck pain. Cardiac: No pressor. Gastrointestinal: He does have possible coffee-ground emesis. He does have vomiting. Genitourinary: No Hogan. Pulmonary: He is congested and short of breath and tachypneic. Skin: No rash. Neurologic: No seizures. PHYSICAL EXAMINATION: Vital Signs: Temperature is 101.9 degrees, pulse rate is 114, respiratory rate 20, blood pressure 186/83, T-max is 101.9 degrees, and saturation 97%, he is on nasal cannula. Head And Neck: Oral exam, no thrush. Eye exam, no icterus. Normocephalic. No facial droop. Neck is supple. HEART: Regular. No gallop or murmur. Tachycardic. LUNGS: Bilateral rhonchi and rales. ABDOMEN: Soft. Positive bowel sounds. Nontender. SKIN: He has no rash. MUSCULOSKELETAL: No effusion. Legs without cellulitis. PERIPHERAL VASCULAR: No cyanosis. GENITOURINARY: No Hogan. LINES: Line sites without phlebitis. NEUROLOGIC: Generalized weakness. Responsive. Laboratory And Diagnostic Data: Laboratory data is as follows: White count is 18.1 and hemoglobin 11.3. He has had 10% bands. Creatinine is 1.2. Sodium 133. Chest x-ray shows diffuse interstitial edema, possible right lower lobe opacity. Reading was interstitial edema however. Cultures are pending. ASSESSMENT AND PLAN: 1. The patient is septic with elevated white count and fevers, systemic inflammatory response syndrome criteria. Mostly likely he has an aspiration pneumonia with coffee-ground emesis and subsequent sepsis. The patient currently is on Zosyn and I am going to add vancomycin for methicillin-resistant Staphylococcus aureus coverage especially with history of orthopedic surgeries and the patient is at some risk for methicillin-resistant Staphylococcus aureus pneumonia and methicillin-resistant Staphylococcus aureus infection. We will continue Zosyn for aspiration pneumonia. I would also continue Levaquin for double Gram-negative coverage in addition to cover community-acquired pneumonia including atypical pneumonia, which is also a possibility even though I think this is less likely. But because of the critical nature of the patient including sepsis and respiratory insufficiency, I would cover him for aspiration community acquired including methicillin-resistant Staphylococcus aureus Gram-negative pneumonia. Continue antibiotics. Check sputum cultures, labs, blood cultures, and chest x-ray. Of note, urinalysis did show 2+ leukocyte esterase, must consider possible urinary tract infection but this is again less likely. Check followup labs, chest x-ray, and cultures. 2. History of alcohol use, smoking, also narcotic dependency. The patient was in detox. Continue supportive measures per Dr. Arteaga. 3. History of hypertension. 4. Gastroesophageal reflux disease. 5. Psychiatric disease. 6. Depression. 7. Anxiety. 8. Anemia. 9. Chronic pain syndrome. 10. Narcotic dependency. 11. History of bilateral shoulder replacement. 12. History of knee replacement. 13. MAR was noted. 14. Case was discussed with RN. 15. Case was discussed with Dr. Arteaga. 16. Allergies are negative. 17. Family history is noncontributory. 18. Notes were reviewed. 19. Continue treatment per Dr. Arteaga and consultants. 20. ICU care. 21. Continue pulmonary treatment. I was asked by Dr. Arteaga to see this patient. Of note, the patient will go to the ICU and the patient was seen in the emergency room. Mirian Rowland M.D. DR: Iqra JOB#: [id number] CC: SURINDER
[2017-01-20 08:47] LABS: BASOPHILS % (AUTO) 0.3 % (0.0-2.0); EOSINOPHILS % (AUTO) 0.2 % (0.0-3.0); LYMPHOCYTES % (AUTO) 14.1 % (20.0-45.0); MEAN CORPUSCULAR HEMOGLOBIN 27.5 PG (27.0-31.0); MEAN CORPUSCULAR VOLUME 86 FL (80-99); MEAN PLATELET VOLUME 5.8 FL (6.5-10.1); MONOCYTES % (AUTO) 9.3 % (1.0-10.0); NEUTROPHILS % (AUTO) 76.2 % (45.0-75.0); PLATELET COUNT 255 K/UL (150-450); RED BLOOD COUNT 3.31 M/UL (4.70-6.10); RED CELL DISTRIBUTION WIDTH 14.3 % (11.6-14.8); WHITE BLOOD COUNT 15.7 K/UL (4.8-10.8)
[2017-01-20] MEDS: Propranolol 40mg tab ORAL SCH ×2 (09:00→09:18)
[2017-01-20] MEDS ORDERED: Montelukast 10mg tablet ORAL SCH (09:00)
[2017-01-20] MEDS: Sucralfate 1gm tab ORAL SCH ×2 (09:18→13:30)
[2017-01-20] MEDS: Artificial Tears 1.4% Op Soln BOTH EYES SCH ×2 (09:18→13:29)
[2017-01-20] MEDS: Docusate 100mg cap ORAL SCH (09:18)
[2017-01-20] MEDS ORDERED: Esomeprazole sodium 40mg vial IVP SCH (09:45)
--- NOTE | 2017-01-20 10:02 | Pulmonology Progress Note ---
Assessment/Plan Problems: (1) Aspiration pneumonia (2) Benzodiazepine overdose (3) Acute toxic encephalopathy (4) Coffee ground emesis Assessment/Plan improving afebrile chest pt respiratory treatment. Subjective ROS Limited/Unobtainable: No Interval Events: admitted last night to ICU for fever, sepsis, ALOC, drug overdose, Constitutional: Reports: no symptoms HEENT: Repors: no symptoms Respiratory: Reports: productive cough Allergies: Coded Allergies: No Known Allergies (Unverified , 01/19/17) Objective Last 24 Hour Vital Signs Date Time Temp Pulse Resp B/P (MAP) Pulse Ox O2 Delivery O2 Flow Rate FiO2 01/20/17 09:00 94 139/57 01/20/17 08:00 88 01/20/17 08:00 98.1 88 20 134/73 97 Nasal Cannula 2.0 01/20/17 07:00 87 20 143/70 97 Nasal Cannula 2.0 01/20/17 06:40 Nasal Cannula 2.0 01/20/17 06:39 97 Nasal Cannula 2.0 01/20/17 06:37 100 18 Nasal Cannula 2.0 01/20/17 06:00 106 20 165/68 97 Nasal Cannula 2.0 01/20/17 05:52 89 01/20/17 05:00 100 20 155/77 97 Nasal Cannula 2.0 01/20/17 04:00 106 01/20/17 04:00 98.3 95 18 135/60 97 Nasal Cannula 2.0 01/20/17 03:00 92 17 151/65 98 Nasal Cannula 2.0 01/20/17 02:00 89 16 166/84 98 Nasal Cannula 2.0 01/20/17 01:00 91 16 166/84 98 Nasal Cannula 2.0 01/20/17 00:00 99.1 93 15 156/78 97 Nasal Cannula 2.0 01/20/17 00:00 92 01/19/17 23:00 99 16 174/77 97 Nasal Cannula 2.0 01/19/17 22:00 99 16 175/77 97 Nasal Cannula 2.0 01/19/17 21:00 101 15 158/75 98 Nasal Cannula 2.0 01/19/17 20:51 Nasal Cannula 2.0 28 01/19/17 20:51 97 Nasal Cannula 2.0 28 01/19/17 20:50 103 20 Nasal Cannula 2.0 28 01/19/17 20:09 111 166/79 01/19/17 20:00 109 16 174/77 97 Nasal Cannula 2.0 01/19/17 20:00 117 01/19/17 19:18 112 22 198/89 97 Nasal Cannula 2.0 01/19/17 19:00 99.5 115 17 165/89 96 Nasal Cannula 2.0 01/19/17 17:58 101.8 114 20 186/83 97 Nasal Cannula 2.0 01/19/17 17:38 178/86 01/19/17 17:08 101.9 116 18 190/87 97 Nasal Cannula 2.0 01/19/17 16:41 199/88 01/19/17 16:11 193/106 01/19/17 16:10 101.2 141 24 182/101 94 Nasal Cannula 4.0 01/19/17 14:58 101.7 115 24 191/96 80 Room Air Intake and Output 01/20/17 01/21/17 19:00 07:00 Intake Total 130.0 ml Output Total 50 ml Balance 80.0 ml Intake IV Total 130.0 ml Output Urine Total 50 ml General Appearance: WD/WN HEENT: normocephalic, atraumatic Respiratory/Chest: chest wall non-tender, lungs clear Cardiovascular: normal peripheral pulses, normal rate Abdomen: normal bowel sounds, soft, non tender Genitourinary: normal external genitalia Extremities: no clubbing Skin: no lesions 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, no motor/sensory deficits Lymphatic: no neck adenopathy Musculoskeletal: normal muscle bulk, no effusion Microbiology Date/Time Source Procedure Growth Status 01/19/17 15:30 Urine,Clean Catch Urine Culture - Preliminary Gram Negative Bacillus 1 Resulted Laboratory Tests 01/19/17 15:15: White Blood Count 18.1H, Red Blood Count 4.10L, Hemoglobin 11.3L, Hematocrit 35.6L, Mean Corpuscular Volume 87, Mean Corpuscular Hemoglobin 27.5, Mean Corpuscular Hemoglobin Concent 31.6L, Red Cell Distribution Width 14.9H, Platelet Count 334, Mean Platelet Volume 6.1L, Neutrophils (%) (Auto) , Lymphocytes (%) (Auto) , Monocytes (%) (Auto) , Eosinophils (%) (Auto) , Basophils (%) (Auto) , Differential Total Cells Counted 100, Neutrophils % ( Manual) 74, Lymphocytes % (Manual) 9L, Monocytes % (Manual) 6, Eosinophils % ( Manual) 1, Basophils % (Manual) 0, Band Neutrophils 10H, Platelet Estimate Adequate, Platelet Morphology Normal, Anisocytosis 1+, Prothrombin Time 10.6, Prothromb Time International Ratio 1.0, Activated Partial Thromboplast Time 26, Sodium Level 133L, Potassium Level 4.3, Chloride Level 96L, Carbon Dioxide Level 24, Anion Gap 13, Blood Urea Nitrogen 17, Creatinine 1.2, Estimat Glomerular Filtration Rate > 60, Glucose Level 179H, Calcium Level 9.1, Total Bilirubin 0.2, Aspartate Amino Transf (AST/SGOT) 13, Alanine Aminotransferase ( ALT/SGPT) 7, Alkaline Phosphatase 105, Total Creatine Kinase 49, Creatine Kinase MB < 1.5, Creatine Kinase MB Relative Index 3.0, Troponin I < 0.30, Pro-B -Type Natriuretic Peptide 382H, Total Protein 7.8, Albumin 4.5, Globulin 3.3, Albumin/Globulin Ratio 1.3, Salicylates Level < 1L, Acetaminophen Level < 10L, Serum Alcohol < 10 01/19/17 15:30: Urine Color Pale yellow, Urine Appearance Slightly cloudy, Urine pH 5, Urine Specific [place] 1.015, Urine Protein Negative, Urine Glucose (UA) Negative, Urine Ketones Negative, Urine Occult Blood 1+H, Urine Nitrite Negative, Urine Bilirubin Negative, Urine Urobilinogen Normal, Urine Leukocyte Esterase 2+H, Urine RBC 2-4H, Urine WBC 5-10H, Urine Squamous Epithelial Cells Few, Urine Bacteria ModerateH, Urine Opiates Screen Negative, Urine Barbiturates Screen Negative, Phencyclidine (PCP) Screen Negative, Urine Amphetamines Screen Negative, Urine Benzodiazepines Screen PositiveH, Urine Cocaine Screen Negative , Urine Marijuana (THC) Screen Negative 01/19/17 15:50: Arterial Blood pH 7.320L, Arterial Blood Partial Pressure CO2 45.5H, Arterial Blood Partial Pressure O2 95.5, Arterial Blood HCO3 23.3, Arterial Blood Oxygen Saturation 95.7, Arterial Blood Base Excess -2.6, Brian Test Positive 01/20/17 04:35: White Blood Count 17.7H, Red Blood Count 3.18L, Hemoglobin 9.2L, Hematocrit 27.4L, Mean Corpuscular Volume 86, Mean Corpuscular Hemoglobin 29.1, Mean Corpuscular Hemoglobin Concent 33.8, Red Cell Distribution Width 14.8, Platelet Count 256, Mean Platelet Volume 6.1L, Neutrophils (%) (Auto) 80.4H, Lymphocytes (%) (Auto) 9.9L, Monocytes (%) (Auto) 9.1, Eosinophils (%) (Auto) 0.0, Basophils (%) (Auto) 0.6, Sodium Level 137, Potassium Level 4.0, Chloride Level 101, Carbon Dioxide Level 24, Anion Gap 12, Blood Urea Nitrogen 22, Creatinine 1.1, Estimat Glomerular Filtration Rate > 60, Glucose Level 127H, Calcium Level 8.5L, Total Bilirubin 0.3, Aspartate Amino Transf (AST/SGOT) 14, Alanine Aminotransferase (ALT/SGPT) 6, Alkaline Phosphatase 82, Total Protein 6.4L, Albumin 3.6, Direct Bilirubin 0.1, Urine Legionella Antigen [Pending], Mycoplasma pneumoniae IgG Antibody [Pending], Mycoplasma pneumoniae IgM Ab Titer [Pending] 01/20/17 08:10: White Blood Count 15.7H, Red Blood Count 3.31L, Hemoglobin 9.1L, Hematocrit 28.5L, Mean Corpuscular Volume 86, Mean Corpuscular Hemoglobin 27.5, Mean Corpuscular Hemoglobin Concent 32.0, Red Cell Distribution Width 14.3, Platelet Count 255, Mean Platelet Volume 5.8L, Neutrophils (%) (Auto) 76.2H, Lymphocytes (%) (Auto) 14.1L, Monocytes (%) (Auto) 9.3, Eosinophils (%) (Auto) 0.2, Basophils (%) (Auto) 0.3 Current Medications Medications (Trade) Dose Ordered Sig/Juan Route PRN Reason Start Time Stop Time Status Last Admin Dose Admin Acetaminophen (Tylenol) 650 mg Q4H PRN ORAL mild pain, fever 01/19/17 19:00 02/18/17 18:59 Acetaminophen (Tylenol) 650 mg Q4H PRN RECTAL Mild Pain (1-3), fever 01/19/17 18:15 02/18/17 18:14 01/20/17 02:09 Al Hydroxide/Mg Hydroxide (Mylanta II) 30 ml Q6H PRN ORAL GI UPSET 01/19/17 16:30 02/18/17 16:29 Albuterol/ Ipratropium (DuoNeb 0.5-3(2.5)mg/3ml) 3 ml Q4H PRN HHN Shortness of Breath 01/19/17 16:30 01/24/17 16:29 Artificial Tears (Akwa-Tears) 1 drop THREE TIMES A DAY BOTH EYES 01/19/17 21:00 02/18/17 20:59 01/20/17 09:18 Bisacodyl (Dulcolax) 10 mg DAILYPRN PRN RECTAL UNRELIEVED CONSTIPATION 01/19/17 16:30 02/18/17 16:29 Clonidine HCl (Catapres) 0.1 mg TIDPRN PRN ORAL SBP>160 01/19/17 18:15 02/18/17 18:14 Dextrose (Dextrose 50%) STAT PRN IV Hypoglycemia 01/19/17 16:30 02/18/17 16:29 Dextrose/Sodium Chloride 1,000 ml @ 50 mls/hr Q20H IV 01/20/17 19:20 02/19/17 19:19 Diphenhydramine HCl (Benadryl) 25 mg Q6H PRN ORAL Itching/Pruritis 01/19/17 16:30 02/18/17 16:29 Docusate Sodium (Colace) 100 mg EVERY 12 HOURS ORAL 01/19/17 21:00 02/18/17 20:59 01/20/17 09:18 Esomeprazole Sodium (Nexium I.v.) 40 mg BID IVP 01/20/17 09:45 02/19/17 09:44 UNV Haloperidol (Haldol) 1 mg Q6H PRN ORAL Agitation 01/20/17 05:45 02/19/17 05:44 Heparin Sodium (Porcine) (Heparin 5000 units/ml) 5,000 units EVERY 8 HOURS SUBQ 01/19/17 22:00 02/18/17 21:59 Future Hold Hydralazine HCl (Apresoline) 10 mg Q4H PRN IV For High Blood Pressure 01/20/17 02:10 02/19/17 02:09 Levofloxacin 100 ml @ 100 mls/hr Q24H IVPB 01/20/17 16:00 01/27/17 15:59 Magnesium Hydroxide (Mom) 30 ml HSPRN PRN ORAL Constipation 01/19/17 16:30 02/18/17 16:29 Metoprolol Tartrate 5 mg/ Sodium Chloride 60 ml @ 120 mls/hr Q6H PRN IVPB SBP>160 IF UNABLE TO TAKE ORAL 01/19/17 19:15 02/18/17 19:14 01/19/17 20:09 Montelukast Sodium (Singulair) 10 mg DAILY ORAL 01/20/17 09:00 02/19/17 08:59 01/20/17 09:18 Nicotine (Nicoderm) 1 patch Q24H TDERMAL 01/19/17 23:30 02/18/17 23:29 01/20/17 08:08 Ondansetron HCl (Zofran) 4 mg Q6H PRN IVP Nausea & Vomiting 01/19/17 16:30 02/18/17 16:29 Piperacillin Sod/ Tazobactam Sod 3.375 gm/Dextrose 110 ml @ 27.5 mls/hr Q8HR IVPB 01/19/17 20:00 01/26/17 19:59 01/20/17 06:26 Polyethylene Glycol (Miralax) 17 gm DAILYPRN PRN ORAL Constipation 01/19/17 16:30 02/18/17 16:29 Prochlorperazine (Compazine) 10 mg Q6H PRN IVP UNRELIEVED N/V 01/19/17 16:30 02/18/17 16:29 Propranolol HCl (Inderal) 80 mg BID@0900,2100 ORAL 01/20/17 09:00 02/19/17 08:59 Sucralfate (Carafate) 1 gm FOUR TIMES A DAY ORAL 01/20/17 09:00 02/19/17 08:59 01/20/17 09:18 Vancomycin HCl (Vanco rx to dose) 1 ea DAILYPRN PRN MISC Per rx protocol 01/19/17 19:30 02/18/17 19:29 Vancomycin HCl/ Dextrose 250 ml @ 166.667 mls/hr Q12H IVPB 01/19/17 23:00 01/24/17 22:59 01/19/17 23:03 NGUYEN NETTLES Jan 20, 2017 10:02
[2017-01-20] MEDS: Vancomycin 1250mg/D5W 250ml IVPB SCH (11:03)
--- NOTE | 2017-01-20 12:34 | Diagnostic Imaging Report ---
Indication: Dyspnea Comparison: None 1117 A single view chest radiograph was obtained. Findings: Mild interstitial edema may be present. Heart size is borderline enlarged. No pleural effusion seen. Bilateral shoulder prostheses noted. Impression: No change from the prior day
--- NOTE | 2017-01-20 15:09 | GI Initial Consult Note ---
NavyaKalyani Odomoi N.P. 01/20/17 1509: History of Present Illness General Date patient seen: Jan 20, 2017 Time patient seen: 13:00 Reason for Hospitalization: Altered Level of Consciousness Referring physician: NICKI RIOS Reason for Consultation: NARCOTIC OD Present Illness HPI This patient is brought in by EMS. He has a history of narcotic abuse and addiction. He says a history of alcoholism from several years ago. He has a long history of benzodiazepine use. He has had multiple orthopedic surgeries and has become addicted to prescription narcotic pain medications. He is undergoing a 5 day that detox. He has a administrative medical director, spray painter helper and nurse that is handling the home detox. He began detox 3 days ago. Over the past 2 days he has had severe withdrawal symptoms. He is down to oxycodone every 6 hours and has been taking large doses of Valium, gabapentin and other medications to help with the withdrawal symptoms. He had very large doses of Valium over the past day. He is brought in by EMS because of altered mental status. Was concern by his caregiver that he was not responding appropriately. He was slumped over and vomiting. EMS reported that on arrival his oxygen saturations were in the 80s on room air. He did have improvement in his oxygenation with a nonrebreather mask. Also there was concern that the emesis was dark in color that looked like coffee grounds. Patient does have a history of multiple orthopedic surgeries. He has a history of anemia, GERD, tobacco use. The patient is altered and unable to give a significant history. GI Consult. HPI noted above. GI consulted for r/o GI bleed per report of possible coffee grounds. [facility], [facility]. Pt seen on floor NAD with no active s/sx of N/V/D. He presents today with anemia and narcotic/BZD OD. Unknown history of endoscopic procedures at this time. Home Meds Reported Medications Acyclovir* (ZOVIRAX*) 5 Gm Cream..g., 1 APPLIC TOP FIVE TIMES A DAY, #5 GM 0 Refills 01/19/17 Losartan Potassium* (LOSARTAN POTASSIUM*) 50 Mg Tablet, 50 MG ORAL BID, TAB 01/19/17 Glycopyrrolate/Formoterol Fum (Bevespi Aerosphere Inhaler) 10.7 Gm Hfa.aer.ad, 10.7 GM IH BID 01/19/17 Folic Acid (Folic Acid) 1 Mg Tablet, 1 MG PO DAILY, TAB 01/19/17 Tadalafil (CIALIS) 5 Mg Tablet, 5 MG PO DAILY, TAB 01/19/17 Tadalafil (CIALIS) 20 Mg Tablet, 20 MG ORAL NEEDED, TAB 0 Refills 01/19/17 Aspirin (ECOTRIN) 81 Mg Tablet.dr, 81 MG PO DAILY, TAB 01/19/17 Amitriptyline HCl (Amitriptyline HCl) 100 Mg Tablet, 100 MG ORAL BEDTIME, TAB 01/19/17 Sulindac (SULINDAC) 150 Mg Tablet, 150 MG PO BID, TAB 01/19/17 Montelukast Sodium* (SINGULAIR*) 10 Mg Tablet, 10 MG ORAL DAILY, TAB 01/19/17 Dexlansoprazole (Dexilant) 60 Mg Cap.bp, 60 MG ORAL DAILY, CAP 01/19/17 Ranitidine Hcl* (ZANTAC*) 150 Mg Tablet, 150 MG ORAL TWICE A DAY, TAB 01/19/17 Quetiapine Fumarate* (SEROQUEL*) 25 Mg Tablet, 25 MG ORAL HS, TAB 01/19/17 Quetiapine Fumarate* (SEROQUEL*) 100 Mg Tablet, 100 MG ORAL HS, TAB 01/19/17 Aripiprazole* (ABILIFY*) 10 Mg Tablet, 5 MG ORAL DAILY, TAB 01/19/17 Gabapentin (Neurontin) 300 Mg Capsule, 300 MG ORAL THREE TIMES A DAY, #15 CAP 0 Refills 01/19/17 Propranolol HCl (Propranolol HCl) 80 Mg Tablet, 80 MG PO BID, TAB 01/19/17 Oxycodone Hcl Er* (OXYCONTIN*) 10 Mg Tab.er.12h, 10 MG ORAL EVERY 12 HOURS Y for For Pain, TAB 01/19/17 Oxycodone HCl (Oxycodone HCl) 5 Mg Tablet, 5 MG ORAL Q4H Y for For Pain, TAB 0 Refills 01/19/17 Diclofenac Epolamine (Flector) 1 Each Patch.td12, 1 EACH TP DAILY Y for For Pain , PATCH 01/19/17 Naloxone HCl (Naloxone HCl) 1 Mg/1 Ml Syringe, 2 MG IM, SYR 01/19/17 Clonidine Hcl (CLONIDINE HCL) 0.1 Mg Tablet, 0.1 MG PO TID Y for For High Blood Pressure, TAB 01/19/17 Docusate Sodium* (COLACE*) 100 Mg Capsule, 250 MG ORAL DAILY, CAP 01/19/17 Polyethylene Glycol 3350* (MIRALAX*) 17 Gm Powd.pack, 17 GM ORAL DAILY Y for Constipation, PACKET 01/19/17 Psyllium Husk (METAMUCIL) 0.52 Gm Capsule, 0.52 GM PO DAILY, CAP 01/19/17 Fish Oil (Fish Oil 1,000 mg Capsule) 1 Each Capsule, 1000 MG ORAL DAILY, CAP 01/19/17 Calcium Carbonate (TUMS) 300 Mg Tab.chew, 300 MG PO TID, TAB 01/19/17 Calcium Carbonate (TUMS) 200 Mg Tab.chew, 500 MG PO, TAB 01/19/17 Sucralfate (CARAFATE) 1 Gm/10 Ml Oral.susp, 1 GM ORAL FOUR TIMES A DAY, ML 01/19/17 Ascorbic Acid* (VITAMIN C*) 500 Mg Tablet, 500 MG ORAL DAILY, #30 TAB 0 Refills 01/19/17 Vitamin D (Vitamin D3) 400 Unit Tablet, 5000 UNITS ORAL DAILY, TAB 01/19/17 Valacyclovir Hcl* (VALTREX*) 500 Mg Tablet, 500 MG ORAL TWICE A DAY, TAB 01/19/17 Sildenafil Citrate (VIAGRA) 100 Mg Tablet, 100 MG PO PRN, TAB 01/19/17 Med list reviewed/reconciled: Yes Allergies: Coded Allergies: No Known Allergies (Unverified , 01/19/17) Patient History Limited by: medical condition History Provided By: Medical Record PMH Narrative Past Medical History: see triage record, HTN, GERD, psych hx - Depression, Anxiety, other - anemia, chronic pain, narcotic dependence, tobacco dependence Past Surgical History: other - Bilateral shoulder replacements, Knee replacement Social History: Reports: smoking, alcohol use, Denies: drug use Reviewed Nursing Documentation: PMH: Agreed, PSxH: Agreed Social History: Reports: drug use Review of Systems All Other Systems: limited Physical Exam Vital Signs Date Time Temp Pulse Resp B/P (MAP) Pulse Ox O2 Delivery O2 Flow Rate FiO2 01/19/17 14:58 101.7 115 24 191/96 80 Room Air 01/19/17 16:10 4.0 01/19/17 20:50 28 Sp02 EP Interpretation: reviewed Labs Laboratory Tests Test 01/19/17 15:15 01/19/17 15:30 01/19/17 15:50 01/20/17 04:35 White Blood Count 18.1 K/UL (4.8-10.8) H 17.7 K/UL (4.8-10.8) H Red Blood Count 4.10 M/UL (4.70-6.10) L 3.18 M/UL (4.70-6.10) L Hemoglobin 11.3 G/DL (14.2-18.0) L 9.2 G/DL (14.2-18.0) L Hematocrit 35.6 % (42.0-52.0) L 27.4 % (42.0-52.0) L Mean Corpuscular Volume 87 FL (80-99) 86 FL (80-99) Mean Corpuscular Hemoglobin 27.5 PG (27.0-31.0) 29.1 PG (27.0-31.0) Mean Corpuscular Hemoglobin Concent 31.6 G/DL (32.0-36.0) L 33.8 G/DL (32.0-36.0) Red Cell Distribution Width 14.9 % (11.6-14.8) H 14.8 % (11.6-14.8) Platelet Count 334 K/UL (150-450) 256 K/UL (150-450) Mean Platelet Volume 6.1 FL (6.5-10.1) L 6.1 FL (6.5-10.1) L Neutrophils (%) (Auto) % (45.0-75.0) 80.4 % (45.0-75.0) H Lymphocytes (%) (Auto) % (20.0-45.0) 9.9 % (20.0-45.0) L Monocytes (%) (Auto) % (1.0-10.0) 9.1 % (1.0-10.0) Eosinophils (%) (Auto) % (0.0-3.0) 0.0 % (0.0-3.0) Basophils (%) (Auto) % (0.0-2.0) 0.6 % (0.0-2.0) Differential Total Cells Counted 100 Neutrophils % (Manual) 74 % (45-75) Lymphocytes % (Manual) 9 % (20-45) L Monocytes % (Manual) 6 % (1-10) Eosinophils % (Manual) 1 % (0-3) Basophils % (Manual) 0 % (0-2) Band Neutrophils 10 % (0-8) H Platelet Estimate Adequate Platelet Morphology Normal Anisocytosis 1+ Prothrombin Time 10.6 SEC (9.30-11.50) Prothromb Time International Ratio 1.0 (0.9-1.1) Activated Partial Thromboplast Time 26 SEC (23-33) Sodium Level 133 mEQ/L (135-145) L 137 mEQ/L (135-145) Potassium Level 4.3 mEQ/L (3.4-4.9) 4.0 mEQ/L (3.4-4.9) Chloride Level 96 mEQ/L (98-107) L 101 mEQ/L (98-107) Carbon Dioxide Level 24 mEQ/L (20-30) 24 mEQ/L (20-30) Anion Gap 13 (5-15) 12 (5-15) Blood Urea Nitrogen 17 mg/dL (7-23) 22 mg/dL (7-23) Creatinine 1.2 mg/dL (0.7-1.2) 1.1 mg/dL (0.7-1.2) Estimat Glomerular Filtration Rate > 60 mL/min (>60) > 60 mL/min (>60) Glucose Level 179 mg/dL (74-106) H 127 mg/dL (74-106) H Calcium Level 9.1 mg/dL (8.6-10.2) 8.5 mg/dL (8.6-10.2) L Total Bilirubin 0.2 mg/dL (0.0-1.2) 0.3 mg/dL (0.0-1.2) Aspartate Amino Transf (AST/SGOT) 13 U/L (5-40) 14 U/L (5-40) Alanine Aminotransferase (ALT/SGPT) 7 U/L (3-41) 6 U/L (3-41) Alkaline Phosphatase 105 U/L (40-129) 82 U/L (40-129) Total Creatine Kinase 49 U/L (38-174) Creatine Kinase MB < 1.5 ng/mL (< 6.7) Creatine Kinase MB Relative Index 3.0 Troponin I < 0.30 ng/mL (<=0.30) Pro-B-Type Natriuretic Peptide 382 pg/mL (0-125) H Total Protein 7.8 g/dL (6.6-8.7) 6.4 g/dL (6.6-8.7) L Albumin 4.5 g/dL (3.5-5.2) 3.6 g/dL (3.5-5.2) Globulin 3.3 g/dL Albumin/Globulin Ratio 1.3 (1.0-2.7) Salicylates Level < 1 mg/dL (10-30) L Acetaminophen Level < 10 ug/mL (10-30) L Serum Alcohol < 10 mg/dL Urine Color Pale yellow Urine Appearance Slightly cloudy Urine pH 5 (4.5-8.0) Urine Specific [place] 1.015 (1.005-1.035) Urine Protein Negative (NEGATIVE) Urine Glucose (UA) Negative (NEGATIVE) Urine Ketones Negative (NEGATIVE) Urine Occult Blood 1+ (NEGATIVE) H Urine Nitrite Negative (NEGATIVE) Urine Bilirubin Negative (NEGATIVE) Urine Urobilinogen Normal MG/DL (0.0-1.0) Urine Leukocyte Esterase 2+ (NEGATIVE) H Urine RBC 2-4 /HPF (0 - 0) H Urine WBC 5-10 /HPF (0 - 0) H Urine Squamous Epithelial Cells Few /LPF (NONE/OCC) Urine Bacteria Moderate /HPF (NONE) H Urine Opiates Screen Negative (NEGATIVE) Urine Barbiturates Screen Negative (NEGATIVE) Phencyclidine (PCP) Screen Negative (NEGATIVE) Urine Amphetamines Screen Negative (NEGATIVE) Urine Benzodiazepines Screen Positive (NEGATIVE) H Urine Cocaine Screen Negative (NEGATIVE) Urine Marijuana (THC) Screen Negative (NEGATIVE) Arterial Blood pH 7.320 (7.350-7.450) Arterial Blood Partial Pressure CO2 45.5 mmHg (35.0-45.0) H Arterial Blood Partial Pressure O2 95.5 mmHg (75.0-100.0) Arterial Blood HCO3 23.3 mmol/L (22.0-26.0) Arterial Blood Oxygen Saturation 95.7 % (92.0-98.0) Arterial Blood Base Excess -2.6 Brian Test Positive Direct Bilirubin 0.1 mg/dL (0.1-0.3) Urine Legionella Antigen Pending Mycoplasma pneumoniae IgG Antibody Pending Mycoplasma pneumoniae IgM Ab Titer Pending Test 01/20/17 07:00 01/20/17 08:10 Stool Occult Blood Pending White Blood Count 15.7 K/UL (4.8-10.8) H Red Blood Count 3.31 M/UL (4.70-6.10) L Hemoglobin 9.1 G/DL (14.2-18.0) L Hematocrit 28.5 % (42.0-52.0) L Mean Corpuscular Volume 86 FL (80-99) Mean Corpuscular Hemoglobin 27.5 PG (27.0-31.0) Mean Corpuscular Hemoglobin Concent 32.0 G/DL (32.0-36.0) Red Cell Distribution Width 14.3 % (11.6-14.8) Platelet Count 255 K/UL (150-450) Mean Platelet Volume 5.8 FL (6.5-10.1) L Neutrophils (%) (Auto) 76.2 % (45.0-75.0) H Lymphocytes (%) (Auto) 14.1 % (20.0-45.0) L Monocytes (%) (Auto) 9.3 % (1.0-10.0) Eosinophils (%) (Auto) 0.2 % (0.0-3.0) Basophils (%) (Auto) 0.3 % (0.0-2.0) General Appearance: well appearing, no apparent distress, alert Head: normocephalic EENT: PERRL/EOMI, normal ENT inspection Neck: supple Respiratory: normal breath sounds, no respiratory distress Cardiovascular: normal rate Gastrointestinal: non tender, soft, normal bowel sounds Genitourinary: no CVA tenderness Musculoskeletal: normal inspection, back normal Neurologic: normal inspection, alert Skin: normal inspection, normal color, no rash, warm/dry Lymphatic: normal inspection, no adenopathy Current Medications Current Medications Medications (Trade) Dose Ordered Sig/Juan Route PRN Reason Start Time Stop Time Status Last Admin Dose Admin Acetaminophen (Tylenol) 650 mg Q4H PRN ORAL mild pain, fever 01/19/17 19:00 02/18/17 18:59 Acetaminophen (Tylenol) 650 mg Q4H PRN RECTAL Mild Pain (1-3), fever 01/19/17 18:15 02/18/17 18:14 01/20/17 02:09 Al Hydroxide/Mg Hydroxide (Mylanta II) 30 ml Q6H PRN ORAL GI UPSET 01/19/17 16:30 02/18/17 16:29 Albuterol/ Ipratropium (DuoNeb 0.5-3(2.5)mg/3ml) 3 ml Q4H PRN HHN Shortness of Breath 01/19/17 16:30 01/24/17 16:29 Artificial Tears (Akwa-Tears) 1 drop THREE TIMES A DAY BOTH EYES 01/19/17 21:00 02/18/17 20:59 01/20/17 13:29 Bisacodyl (Dulcolax) 10 mg DAILYPRN PRN RECTAL UNRELIEVED CONSTIPATION 01/19/17 16:30 02/18/17 16:29 Clonidine HCl (Catapres) 0.1 mg TIDPRN PRN ORAL SBP>160 01/19/17 18:15 02/18/17 18:14 Dextrose (Dextrose 50%) STAT PRN IV Hypoglycemia 01/19/17 16:30 02/18/17 16:29 Dextrose/Sodium Chloride 1,000 ml @ 50 mls/hr Q20H IV 01/20/17 19:20 02/19/17 19:19 Diphenhydramine HCl (Benadryl) 25 mg Q6H PRN ORAL Itching/Pruritis 01/19/17 16:30 02/18/17 16:29 Docusate Sodium (Colace) 100 mg EVERY 12 HOURS ORAL 01/19/17 21:00 02/18/17 20:59 01/20/17 09:18 Haloperidol (Haldol) 1 mg Q6H PRN ORAL Agitation 01/20/17 05:45 02/19/17 05:44 Heparin Sodium (Porcine) (Heparin 5000 units/ml) 5,000 units EVERY 8 HOURS SUBQ 01/19/17 22:00 02/18/17 21:59 Future Hold Hydralazine HCl (Apresoline) 10 mg Q4H PRN IV For High Blood Pressure 01/20/17 02:10 02/19/17 02:09 Levofloxacin 100 ml @ 100 mls/hr Q24H IVPB 01/20/17 16:00 01/27/17 15:59 Magnesium Hydroxide (Mom) 30 ml HSPRN PRN ORAL Constipation 01/19/17 16:30 02/18/17 16:29 Metoprolol Tartrate 5 mg/ Sodium Chloride 60 ml @ 120 mls/hr Q6H PRN IVPB SBP>160 IF UNABLE TO TAKE ORAL 01/19/17 19:15 02/18/17 19:14 01/19/17 20:09 Montelukast Sodium (Singulair) 10 mg DAILY ORAL 01/20/17 09:00 02/19/17 08:59 01/20/17 09:18 Nicotine (Nicoderm) 1 patch Q24H TDERMAL 01/20/17 13:30 02/19/17 13:29 01/20/17 13:29 Ondansetron HCl (Zofran) 4 mg Q6H PRN IVP Nausea & Vomiting 01/19/17 16:30 02/18/17 16:29 Pantoprazole (Protonix) 40 mg EVERY 12 HOURS IVP 01/20/17 21:00 02/19/17 20:59 Piperacillin Sod/ Tazobactam Sod 3.375 gm/Dextrose 110 ml @ 27.5 mls/hr Q8HR IVPB 01/19/17 20:00 01/26/17 19:59 01/20/17 13:51 Polyethylene Glycol (Miralax) 17 gm DAILYPRN PRN ORAL Constipation 01/19/17 16:30 02/18/17 16:29 Prochlorperazine (Compazine) 10 mg Q6H PRN IVP UNRELIEVED N/V 01/19/17 16:30 02/18/17 16:29 Propranolol HCl (Inderal) 80 mg BID@0900,2100 ORAL 01/20/17 09:00 02/19/17 08:59 Sucralfate (Carafate) 1 gm FOUR TIMES A DAY ORAL 01/20/17 09:00 02/19/17 08:59 01/20/17 13:30 Vancomycin HCl (Vanco rx to dose) 1 ea DAILYPRN PRN MISC Per rx protocol 01/19/17 19:30 02/18/17 19:29 Vancomycin HCl/ Dextrose 250 ml @ 166.667 mls/hr Q12H IVPB 01/19/17 23:00 01/24/17 22:59 01/20/17 11:03 GI: Plan Problems: (1) Benzodiazepine overdose (2) Coffee ground emesis (3) GERD (gastroesophageal reflux disease) (4) Opioid dependence (5) Anxiety (6) Opioid dependence (7) Esophagitis (8) GI bleed Plan defer EGD at this time, will order OB stool r/o GI bleed supportive care at this time monitor H&H, prn transfusions PPI BID CLD, adv as tolerated IV hydration + electrolyte monitor LFTs manage withdrawal symptoms fu labs Discussed with Dr. Sellers. Thank you for referring this patient, we will follow. DENEEN SELLERS 01/28/17 0936: History of Present Illness General Reason for Hospitalization: Altered Level of Consciousness Present Illness Home Meds Reported Medications Acyclovir* (ZOVIRAX*) 5 Gm Cream..g., 1 APPLIC TOP FIVE TIMES A DAY, #5 GM 0 Refills 01/19/17 Losartan Potassium* (LOSARTAN POTASSIUM*) 50 Mg Tablet, 50 MG ORAL BID, TAB 01/19/17 Glycopyrrolate/Formoterol Fum (Bevespi Aerosphere Inhaler) 10.7 Gm Hfa.aer.ad, 10.7 GM IH BID 01/19/17 Folic Acid (Folic Acid) 1 Mg Tablet, 1 MG PO DAILY, TAB 01/19/17 Tadalafil (CIALIS) 5 Mg Tablet, 5 MG PO DAILY, TAB 01/19/17 Tadalafil (CIALIS) 20 Mg Tablet, 20 MG ORAL NEEDED, TAB 0 Refills 01/19/17 Aspirin (ECOTRIN) 81 Mg Tablet.dr, 81 MG PO DAILY, TAB 01/19/17 Amitriptyline HCl (Amitriptyline HCl) 100 Mg Tablet, 100 MG ORAL BEDTIME, TAB 01/19/17 Sulindac (SULINDAC) 150 Mg Tablet, 150 MG PO BID, TAB 01/19/17 Montelukast Sodium* (SINGULAIR*) 10 Mg Tablet, 10 MG ORAL DAILY, TAB 01/19/17 Dexlansoprazole (Dexilant) 60 Mg Cap.bp, 60 MG ORAL DAILY, CAP 01/19/17 Ranitidine Hcl* (ZANTAC*) 150 Mg Tablet, 150 MG ORAL TWICE A DAY, TAB 01/19/17 Quetiapine Fumarate* (SEROQUEL*) 25 Mg Tablet, 25 MG ORAL HS, TAB 01/19/17 Quetiapine Fumarate* (SEROQUEL*) 100 Mg Tablet, 100 MG ORAL HS, TAB 01/19/17 Aripiprazole* (ABILIFY*) 10 Mg Tablet, 5 MG ORAL DAILY, TAB 01/19/17 Gabapentin (Neurontin) 300 Mg Capsule, 300 MG ORAL THREE TIMES A DAY, #15 CAP 0 Refills 01/19/17 Propranolol HCl (Propranolol HCl) 80 Mg Tablet, 80 MG PO BID, TAB 01/19/17 Oxycodone Hcl Er* (OXYCONTIN*) 10 Mg Tab.er.12h, 10 MG ORAL EVERY 12 HOURS Y for For Pain, TAB 01/19/17 Oxycodone HCl (Oxycodone HCl) 5 Mg Tablet, 5 MG ORAL Q4H Y for For Pain, TAB 0 Refills 01/19/17 Diclofenac Epolamine (Flector) 1 Each Patch.td12, 1 EACH TP DAILY Y for For Pain , PATCH 01/19/17 Naloxone HCl (Naloxone HCl) 1 Mg/1 Ml Syringe, 2 MG IM, SYR 01/19/17 Clonidine Hcl (CLONIDINE HCL) 0.1 Mg Tablet, 0.1 MG PO TID Y for For High Blood Pressure, TAB 01/19/17 Docusate Sodium* (COLACE*) 100 Mg Capsule, 250 MG ORAL DAILY, CAP 01/19/17 Polyethylene Glycol 3350* (MIRALAX*) 17 Gm Powd.pack, 17 GM ORAL DAILY Y for Constipation, PACKET 01/19/17 Psyllium Husk (METAMUCIL) 0.52 Gm Capsule, 0.52 GM PO DAILY, CAP 01/19/17 Fish Oil (Fish Oil 1,000 mg Capsule) 1 Each Capsule, 1000 MG ORAL DAILY, CAP 01/19/17 Calcium Carbonate (TUMS) 300 Mg Tab.chew, 300 MG PO TID, TAB 01/19/17 Calcium Carbonate (TUMS) 200 Mg Tab.chew, 500 MG PO, TAB 01/19/17 Sucralfate (CARAFATE) 1 Gm/10 Ml Oral.susp, 1 GM ORAL FOUR TIMES A DAY, ML 01/19/17 Ascorbic Acid* (VITAMIN C*) 500 Mg Tablet, 500 MG ORAL DAILY, #30 TAB 0 Refills 01/19/17 Vitamin D (Vitamin D3) 400 Unit Tablet, 5000 UNITS ORAL DAILY, TAB 01/19/17 Valacyclovir Hcl* (VALTREX*) 500 Mg Tablet, 500 MG ORAL TWICE A DAY, TAB 01/19/17 Sildenafil Citrate (VIAGRA) 100 Mg Tablet, 100 MG PO PRN, TAB 01/19/17 Allergies: Coded Allergies: No Known Allergies (Unverified , 01/19/17) GI: Plan Plan The patient was seen and examined at bedside and all new and available data was reviewed in the patients chart. I agree with the above findings, impression and plan. (Patient seen earlier today. Signature stamp does not reflect patient encounter time.). -Poly Anderson MDh Paul Peña Jan 20, 2017 15:09 DENEEN SELLERS Jan 28, 2017 09:36
[2017-01-20] MEDS ORDERED: Tubing IV Secondary IV ONE (15:17)
[2017-01-20] MEDS ORDERED: D5NS 1000ml IV ONE (15:17)
--- NOTE | 2017-01-20 17:57 | Cardiology Report ---
APPROVED REPORT EKG Measurement Heart [id number] Sinus tachycardia Otherwise normal ECG
[2017-01-20] MEDS ORDERED: D5NS 1,000 ML IV SCH ×2 (19:20)
[2017-01-20] MEDS ORDERED: Pantoprazole Inj IVP SCH ×2 (21:00)
[2017-01-22 20:21] LABS: MYCOPLASMA PNEUMONIAE AB IGG 1071 U/mL (0-99); MYCOPLASMA PNEUMONIAE AB IGM <770 U/mL (0-769)
--- NOTE | 2017-01-27 17:53 | Discharge Summary ---
Discharge Summary Hospital Course Date of Admission Jan 19, 2017 at 16:04 Date of Discharge Jan 20, 2017 at 15:18 (transfer to [facility]) Admitting Diagnosis OPIOID WITHDRAWAL, BENZODIAZEPINE OD Reason for Hospitalization: Acute encephalopathy, Acute respiratory failure HPI 66y/o male with pmh of depression/anxiety, alcohol abuse (now in remission per reports), hepatitis C, tobacco abuse, chronic pain with opioid dependence, osteoarthritis w/ multiple orthopedic surgeries (R TKA 08/2016, R reverse total shoulder arthroplasty 09/2016), GERD, esophagitis who presents with AMS. Pt somnolent at time of my history. Per pt's cousin, pt has had multiple orthopedic surgeries and has become addicted to prescription narcotic pain medications. He is undergoing a 5 day detox. He has a medical claims manager, painter apprentice and nurse that is handling the home detox. Over the past 2 days he has had severe withdrawal symptoms. He is down to oxycodone 5mg every 6 hours and has been taking large doses of Valium, gabapentin and other medications to help with the withdrawal symptoms. He had very large doses of Valium over the past day. There was concern by his caregiver that he was not responding appropriately. He was slumped over and vomiting. There was concern for aspiration. EMS reported that on arrival his oxygen saturations were in the 80s on room air. He did have improvement in his oxygenation with a nonrebreather mask. Also there was concern that the emesis was dark in color that looked like coffee grounds. Patient does have a history of multiple orthopedic surgeries. In ED, pt noted to have fevers to 101, tachycardic and hypertensive. Labs showed leukocytosis to 18K, hyponatremia. Pt given fluids, levaquin Consultations Gastroenterology, Pulmonology, Infectious disease Hospital Course Pt was admitted to ICU. He was maintained on oxxygen. He was treated w/ IVFs, and empiric IV antibiotics (vanco and zosyn) for possible aspiration pneumonia. He was also treated with PPI gtt given concern for upper GI bleed. Prior to completion of medical workup and mgmt pt/family requested transfer to [facility]; therefore, he was ultimately transferred there. Discharge Condition Upon Discharge: unchanged Discharge Disposition Pt was transferred to [facility] Discharge Diagnoses: (1) Acute toxic encephalopathy (2) Acute respiratory failure with hypoxia (3) Benzodiazepine overdose (4) Coffee ground emesis (5) GERD (gastroesophageal reflux disease) (6) Sepsis (7) Tobacco abuse (8) Aspiration pneumonia (9) Opioid dependence (10) Hepatitis C infection (11) Osteoarthritis (12) Depression (13) Anxiety (14) Insomnia (15) Opioid dependence (16) H/O esophagitis Jenni Lang M.D. Jan 27, 2017 17:53
--- NOTE | 2017-02-06 11:12 | Discharge Summary ---
Discharge Summary Hospital Course Date of Admission Jan 19, 2017 at 16:04 Date of Discharge Jan 20, 2017 at 15:18 Admitting Diagnosis OPIOID WITHDRAWAL, BENZODIAZEPINE OD HPI Narinder Jones is a 66 year old male who was admitted on Jan 19, 2017 at 16:04 for Opiod Withdrawal, Benzodiazepine Overdose Hospital Course [id number] Discharge Discharge Disposition Patient was transferred to [facility] Discharge Diagnoses: Dominique Neville NP Feb 06, 2017 11:12
--- NOTE | 2017-02-07 05:45 | Discharge Summary 2 SIG ---
DATE OF ADMISSION: 01/19/2017 DATE OF DISCHARGE: 01/20/2017 CONSULTANTS: 1. Ion Clinton M.D. 2. Mirian Rowland M.D. Brief Hospital Course: The patient is a 66-year-old male with past medical history of depression/anxiety with alcohol abuse, hepatitis C, tobacco abuse, chronic pain with opioid dependence, osteoarthritis with multiple orthopedic surgeries, GERD, and esophagitis, presented to ED due to altered mental status. The patient was somnolent per history and per family the patient has become addicted to prescription narcotic pain medications and undergoing 5 day detox. He was noted to have severe withdrawal symptoms. EMS was called in and per EMS report, O2 saturation was down to 80s on room air. He did have improvement on his oxygenation with a non-rebreather mask. There was concern that the emesis was dark in color and looked like coffee-ground. In ED, the patient was noted to have fever of 101. He was tachycardic and hypertensive. Laboratories showed leukocytosis with WBC of 18. Sodium was 133. He was given IV hydration. He was started on Zosyn and was seen by Dr. Rowland. Vancomycin was added together with Levaquin for double gram-negative coverage in addition to cover community-acquired pneumonia including atypical pneumonia. He was given respiratory treatments. GI was consulted for possible GI bleed due to reports of coffee-ground vomiting. He was given proton pump inhibitors. Diet was advanced to clear liquid diet and as tolerated. He was eventually transferred over to [facility] to continue care. FINAL DIAGNOSES: 1. Acute toxic encephalopathy. 2. Benzodiazepine overdose. 3. Sepsis. 4. Acute respiratory failure with hypoxia. 5. Aspiration pneumonia. 6. Coffee-ground emesis. 7. Opioid dependence. 8. Tobacco disorder. 9. History of esophagitis. 10. Gastroesophageal reflux disease. DISPOSITION: The patient was transferred to [facility]. Jenni Lang M.D. I have been assigned to dictate discharge summary on this account and I was not involved in the patient's management. Dominique Neville N.P. DR: ANDRE JOB#: [id number] CC: SURINDER
== END 2017-01-20 15:18 | disposition short-term general hospital (02) | DRG 871 ==
LOC: EDBD 15:03 → EDBEDREQ 15:31 → EMR 15:55 → ICU 16:04 → EDBEDREQ 16:36
DX: A41.9 Sepsis, unspecified organism (principal); J69.0 Pneumonitis due to inhalation of food and vomit; J96.01 Acute respiratory failure with hypoxia; F11.23 Opioid dependence with withdrawal; T42.4X1A Poisoning by benzodiazepines, accidental (unintentional), initial encounter; R41.82 Altered mental status, unspecified; I10 Essential (primary) hypertension; K21.9 Gastro-esophageal reflux disease without esophagitis; F32.9 Major depressive disorder, single episode, unspecified; F41.9 Anxiety disorder, unspecified; D64.9 Anemia, unspecified; G89.4 Chronic pain syndrome; Z96.612 Presence of left artificial shoulder joint; Z96.611 Presence of right artificial shoulder joint; Z96.659 Presence of unspecified artificial knee joint
CPT/HCPCS: 36415; 36600; 51701; 71010; 80048; 80053; 80076; 80300; 80329; 81003; 82164; 82270; 82550; 82553; 82803; 83880; 84484; 85007; 85025; 85610; 85730; 86738; 86850; 86900; 86901; 87040; 87081; 87086; 87181; 93005; 94664; 94760; J2310